=== PATIENT | male | born 1945 | race Caucasian/White ===

== ENCOUNTER 2018-06-13 21:48 | Inpatient (IN) | payer MEDICARE ==
[~2018-06-13] VITALS: Ht 188 cm; Wt 108.8 kg
--- NOTE | ~2018-06-13 | HEMODYNAMI ---
PATIENT:TAMMY CARDONA MEDICAL RECORD: [id number] : 43 LOCATION:[place] [address] ADMISSION DATE: 06/13/18 Generatedon:06/15/201813:24 Patient name: TAMMY CARDONA Patient #: [id number] SSN: : 1945 Date of study: 06/15/2018 Page: Of Hemodynamic Procedure Report Patient Data Patient Demographics Procedure consent was obtained First Name: TAMMY Gender: Male Last Name: BRENDAN : 1945 Patient #: [id number] Age: 73 year(s) Race: Additional ID: [id number] Contact details Address: [address] State: [place] City: [facility] Zip code: [address] Past Medical History Allergies: No known allergies Admission Admission Data Admission Date: 06/13/2018 Admission Time: 23:50 Room #: [facility] Height (in.): 74 BSA: 2.32 (m2) Height (cm.): 187.96 BMI: 29.85 (kg/m2) Weight (lbs.): 232.48 Weight (kg.): 105.45 Procedure Procedure Types Cath Procedure Diagnostic Procedure [facility] w/Coronaries Sedation Charges Moderate Sedation up to 15 minutes PCI Procedure Coronary Stent Coronary Stent Initial x2 Peripheral Cath Diagnostic Procedure Firmware Software Verification Engineer Peripheral Procedures Four Vessel Arteriogram Procedure Description Procedure Date Procedure Date: 06/15/2018 Procedure Start Time: 12:54 Procedure End Time: 13:24 Procedure Staff Name Function Tutu Watson MD Performing Physician Donovan Canada RT Scrub Eve Toure RT Monitor Oziel Magana RN Nurse Procedure Data Cath Procedure Fluoroscopy Diagnostic fluoroscopy Total fluoroscopy Time: 4.9 time: 4.9 min min Diagnostic fluoroscopy Total fluoroscopy dose: dose: 1162 mGy 1162 mGy Contrast Material Contrast Material Type Amount (ml) Isovue 300 142 Entry Location Entry Primary Successful Side Size Upsize Upsize Entry Closure Succes sful Closure Location (Fr) 1 (Fr) 2 (Fr) Remarks Device Remarks Femoral Right 5 Fr 6 Fr Exoseal artery Short Estimated blood loss: 10 ml Diagnostic catheters Device Type Used For End Catheter Placement MULTIPACK Pigtail 5 Fr LV Angiography catheter MULTIPACK JL 4.0 5Fr Left Coronary catheter Angiography MULTIPACK 3DRC 5Fr Right Coronary catheter Angiography MULTIPACK 3DRC 5Fr Vertebral (neck catheter and/or head) arteriography MULTIPACK 3DRC 5Fr Cervical carotid catheter (common) arteriography Procedure Complications No complications Procedure Medications Medication Administration Route Dosage Oxygen etCO2 Nasal cannula 3 l/min Lidocaine 2% added to field 20 Heparin Flush Bag added to field 2 bags (1000units/500ml NS) 0.9% NaCl I.V. 100 ml/hr Heparin Bolus I.V. 4000 units Integrilin (Bolus I.V. 9.5 ml 2mg/ml) Integrilin (Bolus wasted 0.5 ml 2mg/ml) Versed I.V. 1 mg Fentanyl I.V. 50 mcg Versed I.V. 1 mg Fentanyl I.V. 50 mcg Versed I.V. 1 mg Fentanyl I.V. 50 mcg Versed I.V. 1 mg Fentanyl I.V. 50 mcg Plavix P.O. 600 mg Hemodynamics Rest BSA: 2.32 (m2) O2 Consumption: Estimated: 259.81 (ml/min) O2 Consumption indexed : Estimated:111.99 (ml/min/m) Heart Rate: 62 (bpm) Snapshots Pre Cath Intra NCS Post Cath Vital Signs Time Heart Resp SPO2 etCO2 NIBP (mmHg) Rhythm Pain Sedation Rate (ipm) (%) (mmHg) Status Level (bpm) 12:42:56 66 18 96 37.1 119/74(86) A-Fib 0 (11) 10(A) , No pain 12:47:10 67 19 97 22.7 114/60(92) A-Fib 0 (11) 10(A) , No pain 12:52:06 70 15 92 15.9 138/117(135) A-Fib 0 (11) 10(A) , No pain 12:57:29 67 13 91 20.4 111/69(97) A-Fib 0 (11) 10(A) , No pain 13:01:31 67 15 98 1.5 130/90(111) A-Fib 0 (11) 9(A) , No pain 13:05:34 54 15 97 27.2 124/91(114) A-Fib 0 (11) 9(A) , No pain 13:09:46 49 14 95 43.1 124/83(96) A-Fib 0 (11) 9(A) , No pain 13:13:54 62 17 97 26.5 125/71(96) A-Fib 0 (11) 9(A) , No pain 13:18:04 61 15 96 20.4 105/78(100) A-Fib 0 (11) 9(A) , No pain 13:22:14 57 16 97 15.9 119/69(88) A-Fib 0 (11) 10(A) , No pain Medications Time Medication Route Dose Verified Delivered Reason Notes Effectiveness by by 12:44:25 Oxygen etCO2 3 Tutu Buffie used for Nasal l/min Walter Magana RN procedure cannula 12:44:33 Lidocaine 2% added 20ml Tutu Tutu for local to vial Walter Watson MD anesthetic field 12:44:39 Heparin Flush added 2 Tutu Tutu used for Bag to bags Walter Watson MD procedure (1000units/500ml field NS) 12:44:49 0.9% NaCl I.V. 100 Tutu Buffie Per physician ml/hr Walter Magana RN 12:53:19 Versed I.V. 1 mg Tutu Buffie for sedation Walter Magana RN 12:53:25 Fentanyl I.V. 50 Tutu Buffie for sedation mcg Walter Magana RN 12:56:33 Versed I.V. 1 mg Tutu Buffie for sedation Walter Magana RN 12:56:36 Fentanyl I.V. 50 Tutu Buffie for sedation mcg Walter Magana RN 12:59:51 Versed I.V. 1 mg Uttu Buffie for sedation Walter Magana RN 12:59:54 Fentanyl I.V. 50 Tutu Buffie for sedation mcg Walter Magana RN 13:03:58 Versed I.V. 1 mg Tutu Buffie for sedation Walter Magana RN 13:03:59 Fentanyl I.V. 50 Tutu Buffie for sedation mcg Walter Magana RN 13:04:27 Heparin Bolus I.V. 4000 Tutu Buffie for verif ied units Tauth MD Magana RN anticoagulation with dr watson 13:04:47 Integrilin I.V. 9.5 Tutu Ludwig for (Bolus 2mg/ml) ml Walter Magana RN antiplatelet therapy 13:05:03 Integrilin wasted 0.5 Tutu Ludwig to sharp's (Bolus 2mg/ml) ml Walter Magana RN 13:23:06 Plavix P.O. 600 Tutu Ludwig for mg Walter Magana RN antiplatelet therapy Procedure Log Time Note 12:13:10 Diagnostic Cath Status : Elective 12:16:04 Patient Weight : 232.48 lbs 12:16:10 Patient Height : 74 inches 12:16:21 Donovan Canada RT(R) (CV) sent for patient. Start room use. 12:16:22 Time tracking: Regular hours (M-F 7:00 - 5:00) 12:16:26 Plan of Care:Hemodynamics will remain stable., Cardiac rhythm will remain stable., Comfort level will be maintained., Respiratory function will remain adequate., Patient/ family verbilizes understanding of procedure., Procedure tolerated without complication., Recovers from procedure without complications.. 12:41:54 Vital chart was started 12:42:17 Patient received from Med/Surg to CCL 1 Alert and oriented. Tansferred to table in Supine position. 12:42:18 Warm blankets applied, and juan miguel hugger turned on for patient comfort. 12:42:18 Correct patient and procedure confirmed by team. 12:42:19 Signed procedure consent form obtained from patient. 12:42:20 ECG and BP/O2 sat monitors applied to patient. 12:42:21 Full Disclosure recording started 12:42:33 H&P Date Dictated: 06/15/2018 Within 30 days and on chart.. 12:42:35 Pre-procedure instructions explained to patient. 12:42:35 Pre-op teaching completed and patient verbalized understanding. 12:42:41 Rhythm: atrial fibrillation 12:42:47 Family in waiting room. 12:42:49 Patient NPO since Midnight. 12:43:02 Patient allergic to No known allergies 12:43:04 Is the patient allergic to Iodine/contrast media? No. 12:43:08 Is patient on blood thinner?No 12:44:25 Oxygen 3 l/min etCO2 Nasal cannula was administered by Oziel Magana RN; used for procedure; 12:44:33 Lidocaine 2% 20ml vial added to field was administered by Tutu Watson MD; for local anesthetic; 12:44:39 Heparin Flush Bag (1000units/500ml NS) 2 bags added to field was administered by Tutu Watson MD; used for procedure; 12:44:49 0.9% NaCl 100 ml/hr I.V. was administered by Oziel Magana RN; Per physician; 12:45:19 Patient diabetic? No. 12:45:22 Previous problem with sedation/anesthesia? No ? 12:45:24 Snore? Yes 12:45:24 Sleep apnea? Yes 12:45:25 Deviated septum? No 12:45:26 Opens mouth fully? Yes 12:45:27 Sticks out tongue? Yes 12:45:34 Airway obstruction? Yes COPD 12:45:44 Dentures? No ? 12:45:50 Pre procedure: right dorsailis pedis pulse 2+ Normal; easily identifiable; not easily obliterated 12:46:25 Pre procedure: left dorsailis pedis pulse 2+ Normal; easily identifiable; not easily obliterated 12:46:28 Patient pain scale 0/10 ?. 12:46:34 IV patent on arrival in left forearm with 0.9% NaCl at [facility]. 12:46:37 Lab results completed and on chart. 12:46:43 Right groin area was prepped with chlora-prep and draped in sterile fashion 12:46:44 Alarms reviewed by R. N. 12:46:45 Sharps counted by scrub and verified by R.N. 12:46:50 Use device set Femoral Dx 12:46:51 ACIST Syringe (14239) opened to sterile field. 12:46:51 Bag Decanter () opened to sterile field. 12:46:51 Medline Cath Pack ([id number]) opened to sterile field. 12:46:52 DIAGNOSTIC WIRE .035 260cm J wire ([id number]) opened to sterile field. 12:46:53 ACIST Hand Control (71109) opened to sterile field. 12:46:54 ACIST Manifold (19087) opened to sterile field. 12:46:54 DIAGNOSTIC Multipack 5Fr catheter set ([id number]) opened to sterile field. 12:46:55 Tegaderm 4 x 4 (1626W) opened to sterile field. 12:46:56 SHEATH 5FR [place] (GID480) opened to sterile field. 12:47:51 Baseline sample Acquired. 12:49:42 Baseline sample Acquired. 12:50:14 Baseline sample Acquired. 12:50:17 Baseline sample Acquired. 12:52:26 Zero performed for pressure channel P1 12:52:29 Final Timeout: patient, procedure, and site verified with staff and physician. All members of the team are in agreement. 12:52:30 Right groin site verified by team. 12:52:33 Maximum allowable Isovue 300 dose 300ml. Physician notified. (300ml for normal creatinines. For patients with creatinine of 1.7 or higher multiply weight(kg) x 5 divided by creatinine.) 12:52:37 Fire Safety Assessment: A--An alcohol-based skin anteseptic being used preoperatively., C--Open oxygen or nitrous oxide is being used., D--An ESU, laser, or fiber-optic light is being used. 12:52:40 Physical assessment completed. ASA score P 3 - A patient with severe systemic disease as per Tutu Watson MD. 12:52:42 Sedation plan: IV Moderate Sedation Medication:Versed, Fentanyl 12:53:19 Versed 1 mg I.V. was administered by Oziel Magana RN; for sedation; 12:53:22 Zero performed for pressure channel P1 12:53:25 Fentanyl 50 mcg I.V. was administered by Oziel Magana RN; for sedation; 12:54:01 Procedure started. 12:54:04 Local anesthetic to right femoral artery with Lidocaine 2% by Tutu Watson MD.INITIAL ACCESS ONLY 12:54:06 Zero performed for pressure channel P1 12:54:10 Zero performed for pressure channel P1 12:54:41 A 5 Fr sheath was inserted into the Right Femoral artery 12:55:45 A MULTIPACK Pigtail 5 Fr catheter was advanced over the wire and used for LV Angiography. 12:56:09 LV gram done using CABAN 12:56:14 Injector settings: Ml/sec: 10, Volume: 20, 12:56:23 EF : 60 % 12:56:33 Versed 1 mg I.V. was administered by Oziel Magana RN; for sedation; 12:56:36 Fentanyl 50 mcg I.V. was administered by Buffie Magana RN; for sedation; 12:56:36 Catheter removed. 12:56:48 A MULTIPACK JL 4.0 5Fr catheter was advanced over the wire and used for Left Coronary Angiography. 12:57:57 Catheter removed. 12:58:07 A MULTIPACK 3DRC 5Fr catheter was advanced over the wire and used for Right Coronary Angiography. 12:59:05 Catheter removed. 12:59:51 Versed 1 mg I.V. was administered by Oziel Magana RN; for sedation; 12:59:54 Fentanyl 50 mcg I.V. was administered by Oziel Magana RN; for sedation; 13:00:41 Sheath upsized to a 6 Fr Short. 13:03:58 Versed 1 mg I.V. was administered by Oziel Magana RN; for sedation; 13::59 Fentanyl 50 mcg I.V. was administered by Oziel Magana RN; for sedation; 13:04:27 Heparin Bolus 4000 units I.V. was administered by Oziel Magana RN; for anticoagulation; verified with dr watson 13:04:47 Integrilin (Bolus 2mg/ml) 9.5 ml I.V. was administered by Oziel Magana RN; for antiplatelet therapy; 13:04:55 6 Fr XBLAD 4.0 guide catheter was inserted over the wire 13:05:03 Integrilin (Bolus 2mg/ml) 0.5 ml wasted was administered by Oziel Magana RN; to sharp's; 13:05:26 CHOICE PT ES wire advanced. 13:06:28 Place stent Inflation Number: 1 A INTEGRITY RX 3.0 x 15 stent ([id number]) was prepped and advanced across the Prox LAD. The stent was deployed at 21 SHOAIB for 0:08 (min:sec). 13:07:23 Wire redirected to CIRC. 13::57 Inflation number: 2 The stent balloon was then re-inflated across the Dist CX to 5 SHOAIB for 0:05 (min:sec). 13:08:10 Stent catheter was removed intact over wire. 13:09:55 Place stent Inflation Number: 1 A INTEGRITY RX 2.75 x 14 stent ( ) was prepped and advanced across the Dist CX. The stent was deployed at 15 SHOAIB for 0:06 (min:sec). 13:10:33 Stent catheter was removed intact over wire. 13:10:33 Wire removed. 13:10:34 Guide catheter removed. 13:11:11 A MULTIPACK 3DRC 5Fr catheter was advanced over the wire and used for Vertebral (neck and/or head) arteriography. 13:12:52 A MULTIPACK 3DRC 5Fr catheter was advanced over the wire and used for Cervical carotid (common) arteriography. 13:14:10 Catheter removed. 13:14:24 Sheath removed intact; hemostasis achieved with Exoseal to the Right Femoral artery. 13:14:26 Procedure ended.(Physican Out) 13:15:02 Fluoroscopy time 04.90 minutes. 13:15:07 Flurop Dose total: 1162 13:15:07 Fluoroscopy dose: 1162 mGy 13:15:39 Contrast amount:Isovue 300 142ml. 13:15:41 Sharps counted by scrub and verified by R.N. 13:15:42 Insertion/operative site no bleeding no hematoma. 13:15:45 Post-op/insertion site Right Femoral artery dressed using a 4 x 4 and Tegaderm. 13:15:49 Post right femoral artery:stable, clean and dry 13:15:51 Post Procedure Pulses reassessed and unchanged 13:15:57 Post-procedure physical assessment completed. ASA score P 3 - A patient with severe systemic disease as per Tutu Watson MD. 13:16:00 Post procedure rhythm: unchanged. 13:16:10 Estimated blood loss: 10 ml 13:16:11 Post procedure instruction explained to patient.Patient verbalizes understanding. 13:16:12 Patient needs reinforcement of post procedure teaching. 13:16:29 Procedure type changed to Cath procedure, Diagnostic procedure, LHC, LHC w/Coronaries, Sedation Charges, Moderate Sedation up to 15 minutes, PCI procedure, Coronary Stent, Coronary Stent Initial x2, Peripheral Cath Diagnostic Procedure, Firmware Software Verification Engineer Peripheral Procedures, Four Vessel Arteriogram 13:18:07 Procedure Complication : No complications 13:18:08 See physician's report for complete and final results. 13:18:22 EXOSEAL 6Fr (EX600) opened to sterile field. 13:18:40 Use device set TAUTH PCI 13:18:43 SHEATH 6FR [place] (ITB750) opened to sterile field. 13:18:45 INFLATOR Merit BasixCompak (ZZ8991) opened to sterile field. 13:18:47 CHOICE PT Extra Support 182cm wire ([id number]) opened to sterile field. 13:18:52 GUIDE 6FR XBLAD 4.0 catheter ([id number]) opened to sterile field. 13:21:06 Procedure and supply charges have been captured, reviewed, submitted and are correct. 13:23:06 Plavix 600 mg P.O. was administered by Oziel Magana RN; for antiplatelet therapy; 13:23:54 Vital chart was stopped 13:23:56 Report given to PCU. 13:24:01 Patient transfered to PCU with Bed. 13:24:04 Procedure ended. 13:24:04 Full Disclosure recording stopped 13:24:08 End room use (Document Last) Intervention Summary Intervention Notes Time ActionType Lesion and Equipment Action# Pressure Duration Attributes Used 13:06:28 Place stent Prox LAD INTEGRITY RX 1 21 00:09 3.0 x 15 stent ([id number]) 13:07:57 Reinflate Dist CX INTEGRITY RX 2 5 00:05 stent 3.0 x 15 balloon stent ([id number]) 13:09:55 Place stent Dist CX INTEGRITY RX 1 15 00:06 2.75 x 14 stent ([id number]) Device Usage Item Name Manufacture Quantity Catalog Number Hospital Part Current Mini mal Lot# / Charge Number Stock Stock Serial# Code ACIST Acist 1 96188 123064 741098 399914 20 Syringe Medical (18310) Systems Inc Bag Decanter Microtek 1 2001S 717625 55349 034474 5 () Medical Inc. Medline Cath Medline 1 [id number] 871183 69933 140529 5 Pack ([id number]) DIAGNOSTIC St [place] 1 102716 633352 106321 861526 30 WIRE .035 260cm J wire (917196) ACIST Hand Acist 1 70355 543505 524234 150964 5 Control Medical (57502) Systems Inc ACIST Acist 1 86925 324273 984024 864583 5 Manifold Medical (09727) Systems Inc DIAGNOSTIC Cardinal 1 FG2096 182840 22269 211318 30 [facility] [email or web address] 5Fr catheter set (XG6830) Tegaderm 4 x 3M 1 1626W 727767 742829 047595 5 4 (1626W) SHEATH 5FR Terumo 1 HIX632 751054 842998 135910 5 [place] (ARS963) MULTIPACK Cardinal 1 836058 5 Pigtail 5 Fr Health catheter MULTIPACK JL Cardinal 1 559847 5 4.0 5Fr Health catheter MULTIPACK Cardinal 1 357815 5 3DRC 5Fr Health catheter INTEGRITY RX Medtronic 1 [id number] 670857 020645 355475 5 [id number] 3.0 x 15 stent ([id number]) INTEGRITY RX Medtronic 1 [id number] 667236 617248 701911 5 [id number] 2.75 x 14 stent ([id number]) EXOSEAL 6Fr Cardinal 1 EX600 604258 623026 501857 10 (EX600) Health SHEATH 6FR Terumo 1 MZA360 769922 555490 645090 40 [place] (OXL685) INFLATOR Merit 1 VJ0255 638445 165886 226594 15 [facility] Medical BasixCompak (BN0755) CHOICE PT [place] 1 [id number] 622061 636814 075096 5 Extra Scientific Support 182cm wire ([id number]) GUIDE 6FR Cardinal 1 [id number] 708979 142905 130409 3 XBLAD 4.0 Health catheter ([id number]) Signature Audit [place] Stage Time Signature Unsigned Intra-Procedure 06/15/2018 Eve 1:24:33 PM Counts RT(R) Signatures Monitor : Eve Signature : Counts RT Date : Time : [address] [address]
[2018-06-13 22:00] VITALS: BP 116/81
[2018-06-13 22:19] LABS: BASOPHILS 0.3 % (0-2); EOSINOPHILS 0.3 % (0-7); HEMATOCRIT 42.8 % (42.0-54.0); HEMOGLOBIN 14.4 g/dL (13.5-17.5); IMMATURE GRANULOCYTES 0.3 % (0-5); LYMPHOCYTES 21.2 % (15-50); MCH 34.3 pg (26.0-34.0); MCHC 33.6 g/dL (31.0-37.0); MCV 101.9 fL (80.0-100.0); MEAN PLATELET VOLUME 10.2 fL (7.4-10.4); MONOCYTES 11.5 % (2-11); NEUTROPHILS 66.4 % (40-80); PLATELET COUNT 254 10x3/uL (130-400); RDW 14.3 % (11.5-14.5); WBC 6.2 10x3/uL (4.8-10.8)
[2018-06-13] MEDS ORDERED: PROTONIX40 MG PO (22:22)
[2018-06-13] MEDS ORDERED: CHRONULAC30 ML PO (22:22)
[2018-06-13] MEDS ORDERED: STERAPRED DS 1210 MG PO (22:22)
[2018-06-13] MEDS ORDERED: REMERON15 MG PO (22:22)
[2018-06-13] MEDS ORDERED: LYRICA100 MG PO (22:23)
[2018-06-13] MEDS ORDERED: IPRAT-ALBUT 0.5-3 ML UPD (22:23)
[2018-06-13] MEDS ORDERED: SINGULAIR10 MG PO (22:23)
[2018-06-13] MEDS ORDERED: TRAMADOL HCL E100 M1 PO (22:24)
[2018-06-13] MEDS ORDERED: CARDIZEM120 MG PO (22:24)
[2018-06-13] MEDS ORDERED: CYMBALTA60 MG PO (22:24)
[2018-06-13] MEDS ORDERED: BROVANA15 MCG/2 M INH (22:25)
[2018-06-13] MEDS ORDERED: BETAPACE 80 MG80 MG PO (22:25)
[2018-06-13] MEDS ORDERED: PULMICORT0.5 MG/21 INH (22:25)
[2018-06-13] MEDS ORDERED: ZANAFLEX4 MG PO (22:26)
[2018-06-13] MEDS ORDERED: XANAX1 MG PO (22:26)
[2018-06-13 22:27] LABS: INR 1.21 (0.85-1.17); PROTIME 14.8 SECONDS (11.6-15.0)
[2018-06-13] MEDS ORDERED: MORPHINE IMMEDI15 MG PO (22:27)
[2018-06-13 22:28] LABS: APTT 32.5 SECONDS (22.8-39.4)
[2018-06-13 22:31] LABS: ALBUMIN 3.3 g/dL (3.4-5.0); ALKALINE PHOSPHATASE 108 U/L (46-116); ALT (SGPT) 23 U/L (10-68); CALC OSMOLALITY 280 mosm/kg (275-300); CALCIUM 8.3 mg/dL (8.5-10.1); CARBON DIOXIDE 33.3 mmol/L (21.0-32.0); CHLORIDE - SERUM 96 mmol/L (98-107); CREATININE - SERUM 1.4 mg/dL (0.6-1.3); GLUCOSE 133 mg/dL (74-106); SODIUM 138 mmol/L (136-145); UREA NITROGEN 20 mg/dL (7-18); eGFR NON AFRICAN AMERICAN 53 mL/min (90-120)
[2018-06-13 22:43] LABS: CKMB 2.7 U/L (0.0-3.6); CREATINE KINASE 189 UL (21-232); PRO BNP 1048 pg/mL (0-125)
[2018-06-13 22:44] LABS: TROPONIN-I 0.016 ng/mL (0.000-0.060)
[2018-06-13 23:00] VITALS: BP 131/69
--- NOTE | 2018-06-13 23:45 | NUR ---
EDP TONIO REPORTS CT C SPINE IS CLEAR, C COLLAR REMOVED PER EDP INSTRUCTION.
--- NOTE | 2018-06-13 23:50 | NUR ---
PT DAUGHTER, ALEXIA,
--- NOTE | 2018-06-14 00:19 | NUR ---
PT ARRIVED ON UNIT VIA STRETCHER ESCORTED BY ER STAFF. PT SLEEPING AND DID NOT AWAKE WHEN TRANSFERRED TO BED. TELEMETRY PLACED PER ORDER. O2 IN USE VIA NC AT 2L. GRIPPER SOCKS PUT ON AND BED ALARM ACTIVATED FOR FALL PRECAUTIONS. SIDE RAILS UP X2 FOR SAFETY.
[2018-06-14 00:36] VITALS: BP 109/73; BMI 29.8
[2018-06-14 04:00] VITALS: BP 106/71
--- NOTE | 2018-06-14 04:21 | NUR ---
DAUGHTER, ALEXIA, CALLED FOR UPDATE ON HER FATHER...NO PASSWORD HAS BEEN SET UP BUT SHE VERIFIED HER NAME AND PHONE NUMBER THAT IS IN HIS RECORD.
[2018-06-14 05:10] LABS: BASOPHILS 0.2 % (0-2); EOSINOPHILS 1.5 % (0-7); HEMATOCRIT 42.9 % (42.0-54.0); HEMOGLOBIN 14.4 g/dL (13.5-17.5); IMMATURE GRANULOCYTES 0.2 % (0-5); MCH 34.4 pg (26.0-34.0); MCHC 33.6 g/dL (31.0-37.0); MCV 102.6 fL (80.0-100.0); MONOCYTES 9.7 % (2-11); NEUTROPHILS 56.4 % (40-80); PLATELET COUNT 231 10x3/uL (130-400); RBC 4.18 10x6/uL (4.20-6.10); RDW 14.3 % (11.5-14.5)
[2018-06-14 05:27] LABS: ANION GAP 12.5 mmol/L (8-16); CALCIUM 8.3 mg/dL (8.5-10.1); CARBON DIOXIDE 33.4 mmol/L (21.0-32.0); CREATININE - SERUM 1.3 mg/dL (0.6-1.3)
[2018-06-14 05:30] LABS: POTASSIUM - SERUM 2.9 mmol/L (3.5-5.1)
[2018-06-14 05:34] LABS: WBC 4.1 10x3/uL (4.8-10.8)
[2018-06-14 08:30] VITALS: BP 125/75
--- NOTE | 2018-06-14 10:29 | NUR ---
LETHARGIC BUT ORIENTED TO SELF AND PLACE IVF INFUSING AT RESRIBED RATE WOTH POTASSIUM RIDERS INFUSING DUE TO k 2.9 PER PROTOCOL. DENIES ANY PAIN OR DISCOMFORT AT THIS TIME. ENCOURAGED TO USE CALL LIGHT FOR ASSIST.
[2018-06-14 12:43] VITALS: BP 127/61
[2018-06-14 12:56] LABS: MAGNESIUM - SERUM 1.8 mg/dL (1.8-2.4); PHOSPHOROUS 3.4 mg/dL (2.5-4.9)
--- NOTE | 2018-06-14 13:00 | NUR ---
PT COUGHING WITH TEMETRY RATE OF 131 OF CONTROLLED A-FIB. DENIES ANY CHEST PAIN OR DISCOMFORT OR CHANGE IN MENTAL STATUS
[2018-06-14 16:36] VITALS: BP 112/72
--- NOTE | 2018-06-14 19:55 | NUR ---
RECEIVED REPORT, ASSUMED CARE, ALERT, EMILY ALARM ON, REINSTATED THE IMPORTANCE OF USING THE CALL LIGHT BEFORE GETTING OUT OF BED, DENIES NEEDS, CALL LIGHT IN REACH, BED LOWEST POSITION, WILL CONTINUE TO MONITOR
[2018-06-14 20:00] VITALS: BP 106/65
[2018-06-15] VITALS (8 sets, daily range): BP systolic 109–129; BP diastolic 51–88
--- NOTE | 2018-06-15 01:44 | NUR ---
I have reviewed this patient and I concur with the Shift Assessment completed by the Licensed Practical Nurse today this shift.
[2018-06-15 04:53] LABS: BASOPHILS 0.2 % (0-2); EOSINOPHILS 4.3 % (0-7); HEMOGLOBIN 13.4 g/dL (13.5-17.5); IMMATURE GRANULOCYTES 0.6 % (0-5); LYMPHOCYTES 30.8 % (15-50); MCHC 31.9 g/dL (31.0-37.0); MEAN PLATELET VOLUME 10.4 fL (7.4-10.4); MONOCYTES 8.9 % (2-11); NEUTROPHILS 55.2 % (40-80); PLATELET COUNT 240 10x3/uL (130-400); RBC 3.94 10x6/uL (4.20-6.10); RDW 14.8 % (11.5-14.5)
[2018-06-15 04:56] LABS: MCV 106.6 fL (80.0-100.0); WBC 5.2 10x3/uL (4.8-10.8)
[2018-06-15 05:13] LABS: ALBUMIN 2.8 g/dL (3.4-5.0); ANION GAP 7.6 mmol/L (8-16); BILIRUBIN - TOTAL 0.36 mg/dL (0.2-1.3); CALCIUM 8.2 mg/dL (8.5-10.1); CARBON DIOXIDE 38.6 mmol/L (21.0-32.0); CREATININE - SERUM 1.1 mg/dL (0.6-1.3); PROTEIN - SERUM 6.1 g/dL (6.4-8.2)
[2018-06-15 05:14] LABS: POTASSIUM - SERUM 4.2 mmol/L (3.5-5.1)
--- NOTE | 2018-06-15 12:08 | MORECARE ---
CASE MANAGEMENT DISCHARGE SUMMARY PATIENT: TAMMY CARDONA UNIT: [id number] ADM DATE: 06/13/18 AGE: 73 : 44 SEX: M ROOM/BED: D.2227 AUTHOR: RANGEL ESCUDERO PHYSICIAN: REFERRING PHYSICIAN: JOHN MESSER MD DATE OF SERVICE: 06/15/18 Discharge Plan Patient Name: TAMMY CARDONA [facility] [facility] 1945 Planned Disposition: Home Anticipated Discharge Date: Discharge Date: Expected LOS: Initial Reviewer: [email or web address] Initial Review Date: 06/15/2018 Generated: 06/15/18 1:08 pm Patient Name: TAMMY CARDONA Page 62640 at 1208 All edits/amendments must be made on the electronic document DICTATION DATE: 06/15/18 1208 SWIMMING POOL CLEANER: JEB 06/15/18 1208 RPT#: [id number] DC DATE: STATUS: ADM IN [facility] [address] [place] [address] END OF REPORT
--- NOTE | 2018-06-15 12:22 | MORECARE ---
CASE MANAGEMENT DISCHARGE SUMMARY PATIENT: TAMMY CARDONA UNIT: [id number] ADM DATE: 06/13/18 AGE: 73 : 43 SEX: M ROOM/BED: D.2227 AUTHOR: RANGEL ESCUDERO PHYSICIAN: REFERRING PHYSICIAN: JOHN MESSER MD DATE OF SERVICE: 06/15/18 Discharge Plan Patient Name: TAMMY CARDONA Facility: [facility]:[place] : 1945 Planned Disposition: Home Anticipated Discharge Date: Discharge Date: Expected LOS: Initial Reviewer: [email or web address] Initial Review Date: 06/15/2018 Generated: 06/15/18 1:22 pm DCPIA - Discharge Planning Initial Assessment Updated by [email or web address]: April Houser on 06/15/18 12:16 pm * Is the patient Alert and Oriented? Yes * How many steps to enter\exit or inside your home? NONE * PCP [facility] [place] [place] JOSE J HUBBARD * [facility] * Preadmission Environment Home with Family * ADLs Partial Dependent * Partial ADLs (Assistance needed) Bathing Dressing * Equipment Nebulizer * Other Equipment CT IS SETTING UP OXYGEN TODAY AT PT'S HOME. HAS CANE AND NEBULIZER CT IS ALSO ARRANGING FOR WHEELCHAIR * List name and contact numbers for known caregivers / representatives who currently or will assist patient after discharge: ALEXIA GUILLORY- GIAN- [phone] * Verbal permission to speak to the caregivers and representatives has been obtained from the patient. Yes * Community resources currently utilized None * Please name any agencies selected above. N/A * Additional services required to return to the preadmission environment? Yes * Can the patient safely return to the preadmission environment? Yes * Has this patient been hospitalized within the prior 30 days at any hospital? No Last DP export: 06/15/18 11:08 a Patient Name: TAMMY CARDONA Page 50048 at 1222 All edits/amendments must be made on the electronic document DICTATION DATE: 06/15/18 1221 CIVIL RIGHTS REPRESENTATIVE: JEB 06/15/18 1221 RPT#: [id number] DC DATE: STATUS: ADM IN [facility] [address] [facility] [place] [address] END OF REPORT
--- NOTE | 2018-06-15 12:30 | MORECARE ---
CASE MANAGEMENT DISCHARGE SUMMARY PATIENT: TAMMY CARDONA UNIT: [id number] ADM DATE: 06/13/18 AGE: 73 : 44 SEX: M ROOM/BED: D.2227 AUTHOR: KENADOC PHYSICIAN: REFERRING PHYSICIAN: JOHN MESSER MD DATE OF SERVICE: 06/15/18 Discharge Plan Patient Name: TAMMY CARDONA Facility: [facility]:[place] : 1945 Planned Disposition: Home Anticipated Discharge Date: Discharge Date: Expected LOS: Initial Reviewer: [email or web address] Initial Review Date: 06/15/2018 Generated: 06/15/18 1:30 pm Comments DCP- Discharge Planning Updated by [email or web address]: April Houser on 06/15/18 11:[address] Patient Name: TAMMY CARDONA Admission Status: ER Accout number: [id number] Admission Date: 06-13-2018 : 1945 Admission Diagnosis: Attending: JOHN MESSER Current LOS: 2 Anticipated DC Date: Planned Disposition: Home Primary Insurance: [employer] ADV Discharge Planning Comments: CM MET THE PATIENT AT THE BEDSIDE. CM EXPLAINED MY ROLE. HE SAID HE WOULD ANSW ER THE QUESTIONS THAT HE COULD. HIS DAUGHTER HELPS HIM WITH HIS CARE. SHE IS HOME WAITING FOR [place] TO DELIVER HIS OXYGEN SUPPLIES TODAY. SHE WILL BE IN TO VISIT TOMORROW. [facility]. MARY HUBBARD APN, FOLLOWS HIM AT THE NE. HIS DAUGHTER ASSIST HIM AT HOME. HE HAS A CANE AND NEBULIZER. [place] IS DELIVERING O2 DME TODAY.HE IS ALSO GETTING A WALKER DELIVERED FROM THE [place]. HE IS ALERT AND ORIENTED. HE IS WEARING NASAL O2 AT 2/L/MIN. HIS PLAN AT THIS TIME IS TO RETURN TO HOME. HE GAVE PERMISSION FOR CM TO SPEAK WITH HIS DAUGHTER REGARDING DC PLANS AND NEEDS. TC TO [place] CLINIC. SPOKE W/ [facility]. CONFIRMED PATIENT'S PRIMARY. WILL FAX H/P TO [place] [phone]. CM TO FOLLOW. Cardiovascular Radiologic Technologist: April Houser DCPIA - Discharge Planning Initial Assessment Updated by [id number]: April Houser on 06/15/18 12:16 pm * Is the patient Alert and Oriented? Yes * How many steps to enter\exit or inside your home? NONE * [facility] [place] * [facility] * Preadmission Environment Home with Family * ADLs Partial Dependent * Partial ADLs (Assistance needed) Bathing Dressing * Equipment Nebulizer * Other Equipment NE IS SETTING UP OXYGEN TODAY AT PT'S HOME. HAS CANE AND NEBULIZER VA IS ALSO ARRANGING FOR WHEELCHAIR * List name and contact numbers for known caregivers / representatives who currently or will assist patient after discharge: ALEXIA GUILLORY- GIAN- [phone] * Verbal permission to speak to the caregivers and representatives has been obtained from the patient. Yes * Community resources currently utilized None * Please name any agencies selected above. N/A * Additional services required to return to the preadmission environment? Yes * Can the patient safely return to the preadmission environment? Yes * Has this patient been hospitalized within the prior 30 days at any hospital? No Last DP export: 06/15/18 11:22 a Patient Name: TAMMY CARDONA Page [id number] at 1230 All edits/amendments must be made on the electronic document DICTATION DATE: 06/15/18 123 UTILITY BILL COLLECTION CLERK: JEB 06/15/18 1230 RPT#: [id number] DC DATE: STATUS: ADM IN [facility] [address] [facility] [place] [address] END OF REPORT
--- NOTE | 2018-06-15 12:55 | NUR ---
I have reviewed this patient and I concur with the Shift Assessment completed by the Licensed Practical Nurse today this shift.
--- NOTE | 2018-06-15 13:52 | NUR ---
BACK FROM [facility]. RIGHT GROIN STABLE WITHOUT BLEEDING OR HEMATOMA NOTED. WILL MONITOR.
--- NOTE | 2018-06-15 17:16 | NUR ---
OT NOTE: PT COMPLETED BED MOB WITH MIN /SBA . PT COMPLETED EOB SITTING WITH CGA. PT COMPLETED BUE AROM. THANK YOU, DARIEL KHAN
--- NOTE | 2018-06-15 17:45 | NUR ---
DR. STONE NOTIFIED OF 0S SATS DROPPING, HEAVY COUGHING AND VOMITING. DUMONT INSERTED, UP GIVEN BY RT. LASIX 80MG GIVEN.. DR CORDOVA CONSULTED. WILL MONITOR.
--- NOTE | 2018-06-15 18:41 | NUR ---
TRANSFERED TO ICU PER DR. CORDOVA STAT.
--- NOTE | 2018-06-15 18:59 | NUR ---
COUGHING UP THICK YELLOW SWPUTUM. VOMITING NOTED FROM COUGHING SO HARD. ZOFRAN 4 MG GIVEN IVP. SUCTION SET UP.. RT NOTIFIED TO CHECK 02 SATS.
--- NOTE | 2018-06-15 19:00 | NUR ---
PT PULLED UP IN BED AND HOB ELEVATED. O2 NC AT 5 L. O2 SAT 98%. SHALLOW RESPIRATIONS. BREATH SOUNDS DIMINISHED WITH EXPIRATORY WHEEZES. PUPILS UNEQUAL BUT BRISK REACTIVE. DUMONT TO GRAVITY WITH LIGHT YELLOW URINE DRAINING. HE RECIEVED LASIX IV PRIOR TO ARRIVAL TO ICU. CONTROLLED A-FIB PER CM.
--- NOTE | 2018-06-15 21:30 | NUR ---
ABG IMPROVED. PT IS MORE ALERT AND FOLLOWS COMMANDS. TOLERATING BIPAP.
[2018-06-16] VITALS (21 sets, daily range): BP systolic 95–148; BP diastolic 62–93
--- NOTE | 2018-06-16 04:00 | NUR ---
PT IS AWAKE AND ALERT. ORIENTED X 4. VSS.
[2018-06-16 04:39] LABS: BASOPHILS 0 % (0-2); EOSINOPHILS 0 % (0-7); HEMATOCRIT 44.3 % (42.0-54.0); HEMOGLOBIN 14.2 g/dL (13.5-17.5); IMMATURE GRANULOCYTES 0.4 % (0-5); LYMPHOCYTES 10.9 % (15-50); MCH 34.4 pg (26.0-34.0); MCHC 32.1 g/dL (31.0-37.0); MCV 107.3 fL (80.0-100.0); MEAN PLATELET VOLUME 10.7 fL (7.4-10.4); MONOCYTES 1.5 % (2-11); NEUTROPHILS 87.2 % (40-80); PLATELET COUNT 266 10x3/uL (130-400); RBC 4.13 10x6/uL (4.20-6.10); RDW 14.5 % (11.5-14.5); WBC 5.5 10x3/uL (4.8-10.8)
[2018-06-16 05:03] LABS: ALBUMIN 3.2 g/dL (3.4-5.0); ANION GAP 5.2 mmol/L (8-16); BILIRUBIN - TOTAL 0.32 mg/dL (0.2-1.3); CALCIUM 8.1 mg/dL (8.5-10.1); CREATININE - SERUM 1.2 mg/dL (0.6-1.3); MAGNESIUM - SERUM 1.8 mg/dL (1.8-2.4); POTASSIUM - SERUM 4.4 mmol/L (3.5-5.1); PROTEIN - SERUM 6.9 g/dL (6.4-8.2)
[2018-06-16 05:09] LABS: CARBON DIOXIDE 42.2 mmol/L (21.0-32.0)
--- NOTE | 2018-06-16 05:45 | NUR ---
BIPAP OFF AND ON 3L NC. REMAINS ORIENTED. DENIES NEEDS
--- NOTE | 2018-06-16 07:00 | NUR ---
SHIFT ASSESSMENT COMPLETED. PT CARE ASSUMED, MONITORS ON AND WORKING. VITALS STABLE, PT AWAKE AND ALERT, SITTING UP IN BED, NO SIGNS/SYMPTOMS OF PAIN OR DISCOMFORT NOTED AT THIS TIME. CALL LIGHT WITHIN REACH, WILL CONTINUE TO OBSERVE.
--- NOTE | 2018-06-16 09:00 | NUR ---
PT SITTING UP IN BED EATING BREAKFAST, FAMILY AT BEDSIDE, UPDATE PROVIDED, MONITORS ON AND WORKING, VITALS STABLE, PT AWAKE AND ALERT, NO SIGNS/SYMPTOMS OF PAIN OR DISCOMFORT NOTED, CALL LIGHT WITHIN REACH, WILL CONTINUE TO OBSERVE
--- NOTE | 2018-06-16 11:00 | NUR ---
NO CHANGES, SEE FLOW SHEET FOR FURTHER DETAILS. MONITORS ON AND WORKING, VITALS STABLE. CALL LIGHT WITHIN REACH, WILL CONTINUE TO OBSERVE.
--- NOTE | 2018-06-16 13:00 | NUR ---
PT SITTING UP IN BED EATING LUNCH, PT AWAKE AND ALERT, MONITORS ON AND WORKING. VITALS STABLE. NO SIGNS/SYMPTOMS OF PAIN OR DISCOMFORT NOTED AT THIS TIME, WILL CONTINUE TO OBSERVE.
--- NOTE | 2018-06-16 15:00 | NUR ---
NO CHANGES, MONITORS ON AND WORKING, VITALS STABLE, CALL LIGHT WITHIN REACH, SEE FLOW SHEET FOR FURTHER DETAILS. WILL CONTINUE TO OBSERVE.
--- NOTE | 2018-06-16 17:00 | NUR ---
PT SITTING UP IN BED, ON THE TELEPHONE, PT AWAKE AND ALERT, VITALS STABLE, MONITORS ON AND WORKING, CALL LIGHT WITHIN REACH, WILL CONTINUE TO OBSERVE.
--- NOTE | 2018-06-16 19:15 | NUR ---
REC'D TO CARE, ADVERTISING REPRESENTATIVE PER FLOWSHEET. PT AWAKE AND ORIENTED, VSS. CM - CAF. SKIN ASSESSMENT PER FLOWSHEET. L PIV PATENT - SEE FLOWSHEET. PT DENIES NEEDS. C/L IN REACH.
--- NOTE | 2018-06-16 21:30 | NUR ---
PT BACK ON BIPAP. VSS. RESTING WITH EYES CLOSED, VSS.
--- NOTE | 2018-06-16 23:30 | NUR ---
REASSESSMENT PER FLOWSHEET, NO ACUTE CHANGES. RT AT BS FOR RESP TX. VSS. FRESH WATER PER REQUEST. C/L IN REACH.
[2018-06-17] VITALS (15 sets, daily range): BP systolic 100–132; BP diastolic 22–97
--- NOTE | 2018-06-17 01:15 | NUR ---
RESTING WITH EYES CLOSED, VSS.. ALARMS ON.
--- NOTE | 2018-06-17 03:30 | NUR ---
REASSESSMENT PER FLOWSHEET, NO ACUTE CHANGES. VSS.
--- NOTE | 2018-06-17 04:35 | NUR ---
PT SITTING AT BS, GIVEN COFFEE PER REQUEST. C/L IN REACH.
[2018-06-17 04:37] LABS: BASOPHILS 0.1 % (0-2); EOSINOPHILS 0 % (0-7); HEMATOCRIT 38.4 % (42.0-54.0); HEMOGLOBIN 12.4 g/dL (13.5-17.5); IMMATURE GRANULOCYTES 0.2 % (0-5); LYMPHOCYTES 5.9 % (15-50); MCH 33.9 pg (26.0-34.0); MCHC 32.3 g/dL (31.0-37.0); MEAN PLATELET VOLUME 10.7 fL (7.4-10.4); MONOCYTES 1.6 % (2-11); NEUTROPHILS 92.2 % (40-80); PLATELET COUNT 244 10x3/uL (130-400); RBC 3.66 10x6/uL (4.20-6.10); RDW 14.4 % (11.5-14.5)
[2018-06-17 04:45] LABS: MCV 104.9 fL (80.0-100.0)
[2018-06-17 05:16] LABS: ALBUMIN 2.8 g/dL (3.4-5.0); ANION GAP 5.4 mmol/L (8-16); BILIRUBIN - TOTAL 0.31 mg/dL (0.2-1.3); CALCIUM 7.9 mg/dL (8.5-10.1); CARBON DIOXIDE 39.9 mmol/L (21.0-32.0); CREATININE - SERUM 1.1 mg/dL (0.6-1.3); MAGNESIUM - SERUM 1.8 mg/dL (1.8-2.4); POTASSIUM - SERUM 4.3 mmol/L (3.5-5.1)
[2018-06-17 05:24] LABS: PHOSPHOROUS 1.9 mg/dL (2.5-4.9)
--- NOTE | 2018-06-17 06:00 | NUR ---
DUMONT-CARE DONE. UP UP IN CHAIR WITHOUT ASSIST. LINENS CHANGED. ALARMS ON AND C/L IN REACH.
--- NOTE | 2018-06-17 07:00 | NUR ---
SHIFT ASSESSMENT COMPLETED. PT CARE ASSUMED. MONITORS ON AND WORKING, PT SITTING UP IN CHAIR BESIDE BED, PT AWAKE AND ALERT, NO SIGNS/SYMPTOMS OF PAIN OR DISCOMFORT NOTED AT THIS TIME. CALL LIGHT WITHIN REACH, SEE FLOW SHEET FOR FURTHER DETAILS. WILL CONTINUE TO OBSERVE.
--- NOTE | 2018-06-17 09:00 | NUR ---
PT SITTING UP IN CHAIR AT BEDSIDE, PT AWAKE AND ALERT, NO SIGNS/SYMPTOMS OF PAIN OR DISCOMFORT NOTED AT THIS TIME. CALL LIGHT WITHIN REACH, WILL CONTINUE TO OBSERVE.
--- NOTE | 2018-06-17 09:22 | NUR ---
NUTRITION MONITORING AND EVAL. PT UP IN CHAIR WATCHING TV. REPORTS EATING 100% BREAKFAST. REMAINS AT LOW NUTRITIONAL RISK. RD FOLLOWING
--- NOTE | 2018-06-17 11:00 | NUR ---
NO CHANGES, SEE FLOW SHEET FOR FURTHER DETAILS, MONITORS ON AND WORKING, VITALS STABLE. CALL LIGHT WITHIN REACH, WILL CONTINUE TO OBSERVE.
--- NOTE | 2018-06-17 13:00 | NUR ---
FAMILY AT BEDSIDE, UPDATE PROVIDED. MONITORS ON AND WORKING, VITALS STABLE, PT AWAKE AND ALERT, NO SIGNS/SYMPTOMS OF PAIN OR DISCOMFORT NOTED AT THIS TIME, WILL CONTINUE TO OBSERVE.
--- NOTE | 2018-06-17 15:00 | NUR ---
TRANSFERS ORDERS REC'D TO TRANSFER PT TO FLOOR WHEN ROOM BECOMES AVAILABLE. PT SITTING UP IN CHAIR, MONITORS ON AND WORKING, VITALS STABLE. CALL LIGHT WITHIN REACH. WILL CONTINUE TO OBSERVE.
--- NOTE | 2018-06-17 16:05 | NUR ---
PT A TRANSFER FROM ICU. PT IS SITTING UP IN BED RESTING QUIETLY. VSS. PT NEEDING TELEMETRY MONITER I CALLED AND ORDERED ONE FROM [facility] AND WILL APPLY WHEN I GET IT. PT DENIES ANY CURRENT PAIN OR NEEDS AT THIS TIME. CL IN REACH, WILL CTM.
--- NOTE | 2018-06-17 19:20 | NUR ---
RESUMING CARE .PT LAYING IN BED A&O BREATH SOUNDS EVEN , 02 ON AT 2L , PT HAS LFT FA IV SL , NO C/O PAIN OR DISRESS AT THIS TIME CL IN REACH WILL CONT TO MONITOR
[2018-06-18] VITALS: BP 111/67
[2018-06-18 04:00] VITALS: BP 126/87
--- NOTE | 2018-06-18 04:17 | NUR ---
I have reviewed this patient and I concur with the Shift Assessment completed by the Licensed Practical Nurse today this shift.
[2018-06-18 05:49] LABS: BASOPHILS 0.1 % (0-2); EOSINOPHILS 0 % (0-7); HEMATOCRIT 40.9 % (42.0-54.0); HEMOGLOBIN 13.2 g/dL (13.5-17.5); IMMATURE GRANULOCYTES 0.3 % (0-5); LYMPHOCYTES 4.7 % (15-50); MCHC 32.3 g/dL (31.0-37.0); MCV 105.4 fL (80.0-100.0); MEAN PLATELET VOLUME 10.8 fL (7.4-10.4); MONOCYTES 2.6 % (2-11); NEUTROPHILS 92.3 % (40-80); PLATELET COUNT 280 10x3/uL (130-400); RBC 3.88 10x6/uL (4.20-6.10); RDW 14.6 % (11.5-14.5); WBC 16.7 10x3/uL (4.8-10.8)
[2018-06-18 06:12] LABS: ALBUMIN 3.1 g/dL (3.4-5.0); ANION GAP 6.5 mmol/L (8-16); BILIRUBIN - TOTAL 0.37 mg/dL (0.2-1.3); CALCIUM 8.3 mg/dL (8.5-10.1); CARBON DIOXIDE 38.6 mmol/L (21.0-32.0); CREATININE - SERUM 1.1 mg/dL (0.6-1.3); POTASSIUM - SERUM 4.1 mmol/L (3.5-5.1); PROTEIN - SERUM 6.5 g/dL (6.4-8.2)
--- NOTE | 2018-06-18 07:45 | NUR ---
AM ROUNDS COMPLETED. INTRODUCED MYSELF TO PT PRIMARY RN FOR TODAYS SHIFT. SHIFT ASSESSMENT COMPLETED. PT RESTING QUIETLY IN BED WAITING ON BREAKFAST. PT STATES HE IS FEELING PRETTY GOOD OVERALL AND HAD A GOOD NIGHT. PT DENIES ANY CURRENT PAIN OR NEEDS AT THIS TIME. CL IN REACH, BED IN LOWEST, SIDE RAILS X2. WILL CTM.
[2018-06-18 07:48] VITALS: BP 139/92
--- NOTE | 2018-06-18 09:59 | NUR ---
CALLED PHARMACY FOR A SECOND TIME I STILL DO NOT HAVE MY ANBX TO HANG FOR PT THAT WAS DUE AN HR AGO.
[2018-06-18 12:00] VITALS: BP 118/73
--- NOTE | 2018-06-18 13:25 | NUR ---
PTS R.FA PIV WAS LEAKING AND SOMEHOW CAME OUT. D/C WITH CATHETER TIP FULLY INTACT. RESTARTED NEW PIV TO L.FA X1 STICK. ANBX CURRENTLY INFUSING. PT SITTING UP IN BED RESTING QUIETLY DENIES ANY CURRENT PAIN OR NEEDS AT THIS TIME. CL IN REACH, BED IN LOWEST, SIDE RAILS X2. WILL CTM.
[2018-06-18 13:29] VITALS: Ht 188 cm; Wt 108.8 kg
--- NOTE | 2018-06-18 18:44 | NUR ---
PT SITTING UP IN BED WATCHING TV. PT STATES HE IS FEELING BETTER OVERALL AND HAD A GREAT DAY. CL IN REACH, BED IN LOWEST, SIDE RAILS X2. BEDSIDE SHIFT REPORTING COMPLETED. NO FURTHER NEEDS.
--- NOTE | 2018-06-18 20:27 | NUR ---
AWAKE,ALERT.NO COMPLIANTS VOICED. 02 @ 2.5L PER NC. NO DISTRESS NOTED. RESP UNLABORED. IV INFUSING TO LFA WITHOUT REDNESS OR EDEMA NOTED. CL IN REACH
[2018-06-18 21:54] VITALS: BP 138/92
[2018-06-19 00:20] VITALS: BP 142/87
--- NOTE | 2018-06-19 02:13 | NUR ---
I have reviewed this patient and I concur with the Shift Assessment completed by the Licensed Practical Nurse today this shift.
[2018-06-19 05:05] VITALS: BP 142/87; BP 154/97
[2018-06-19 07:05] LABS: ALBUMIN 2.9 g/dL (3.4-5.0); ANION GAP 6.6 mmol/L (8-16); BASOPHILS 0 % (0-2); BILIRUBIN - TOTAL 0.51 mg/dL (0.2-1.3); CALCIUM 8.2 mg/dL (8.5-10.1); CREATININE - SERUM 1.1 mg/dL (0.6-1.3); EOSINOPHILS 0 % (0-7); HEMATOCRIT 40.1 % (42.0-54.0); HEMOGLOBIN 12.7 g/dL (13.5-17.5); IMMATURE GRANULOCYTES 0.6 % (0-5); LYMPHOCYTES 5.6 % (15-50); MCH 33.7 pg (26.0-34.0); MCHC 31.7 g/dL (31.0-37.0); MCV 106.4 fL (80.0-100.0); MEAN PLATELET VOLUME 11.1 fL (7.4-10.4); MONOCYTES 4.1 % (2-11); NEUTROPHILS 89.7 % (40-80); PLATELET COUNT 247 10x3/uL (130-400); PROTEIN - SERUM 6.1 g/dL (6.4-8.2); RBC 3.77 10x6/uL (4.20-6.10); RDW 14.7 % (11.5-14.5); WBC 13.1 10x3/uL (4.8-10.8)
[2018-06-19 07:10] LABS: POTASSIUM - SERUM 4.6 mmol/L (3.5-5.1)
[2018-06-19] MEDS ORDERED: VIBRAMYCIN 100100 MG PO (07:35)
[2018-06-19] MEDS ORDERED: OMNICEF300 MG PO (07:35)
[2018-06-19] MEDS ORDERED: PLAVIX75 MG PO (07:35)
[2018-06-19] MEDS ORDERED: PREDNISONE20 MG PO (07:37)
--- NOTE | 2018-06-19 10:34 | MORECARE ---
CASE MANAGEMENT DISCHARGE SUMMARY PATIENT: TAMMY CARDONA UNIT: [id number] ADM DATE: 06/13/18 AGE: 73 : 44 SEX: M ROOM/BED: D.1202 AUTHOR: KENADOC PHYSICIAN: REFERRING PHYSICIAN: JOHN MESSER MD DATE OF SERVICE: 06/19/18 Discharge Plan Patient Name: TAMMY CARDONA Facility: [facility]:[place] : 1945 Planned Disposition: Home Anticipated Discharge Date: 06/19/18 Discharge Date: Expected LOS: 6 Initial Reviewer: [id number] Initial Review Date: 06/15/2018 Generated: 06/19/18 11:34 am DCP- Discharge Planning Updated by [id number]: April Houser on 06/15/18 11:[address] Patient Name: TAMMY CARDONA Admission Status: ER Accout number: [id number] Admission Date: 06-13-2018 : 1945 Admission Diagnosis: Attending: JOHN MESSER Current LOS: 2 Anticipated DC Date: Planned Disposition: Home Primary Insurance: [employer] ADV Discharge Planning Comments: CM MET THE PATIENT AT THE BEDSIDE. CM EXPLAINED MY ROLE. HE SAID HE WOULD ANSW ER THE QUESTIONS THAT HE COULD. HIS DAUGHTER HELPS HIM WITH HIS CARE. SHE IS HOME WAITING FOR [facility] TO DELIVER HIS OXYGEN SUPPLIES TODAY. SHE WILL BE IN TO VISIT TOMORROW. HIS [facility] CARE [facility]RU THE [facility] AT THE LOC[facility]. MARY HUBBARD APN, FOLLOWS HIM AT THE AR. HIS DAUGHTER ASSIST HIM AT HOME. HE HAS A CANE AND NEBULIZER. [place] IS DELIVERING O2 DME TODAY.HE IS ALSO GETTING A WALKER DELIVERED FROM THE [place]. HE IS ALERT AND ORIENTED. HE IS WEARING NASAL O2 AT 2/L/MIN. HIS PLAN AT THIS TIME IS TO RETURN TO HOME. HE GAVE PERMISSION FOR CM TO SPEAK WITH HIS DAUGHTER REGARDING DC PLANS AND NEEDS. TC TO [place] CL[facility]IC. SPOKE W/ [facility]. CONFIRMED PATIENT'S PRIMARY. WILL FAX H/P TO [place] [phone]. CM TO FOLLOW. Receiving Manager: April Houser DCPIA - Discharge Planning Initial Assessment Updated by [id number]: April Houser on 06/15/18 12:16 pm * Is the patient Alert and Oriented? Yes * How many steps to enter\exit or inside your home? NONE * [facility] [place] * [facility] * Preadmission Environment Home with Family * ADLs Partial Dependent * Partial ADLs (Assistance needed) Bathing Dressing * Equipment Nebulizer * Other Equipment [facility] IS SETTING UP OXYGEN TODAY AT PT'S HOME. HAS CANE AND NEBULIZER VA IS ALSO ARRANGING FOR WHEELCHAIR * List name and contact numbers for known caregivers / representatives who currently or will assist patient after discharge: ALEXIA GUILLORY- GIAN- [phone] * Verbal permission to speak to the caregivers and representatives has been obtained from the patient. Yes * Community resources currently utilized None * Please name any agencies selected above. N/A * Additional services required to return to the preadmission environment? Yes * Can the patient safely return to the preadmission environment? Yes * Has this patient been hospitalized within the prior 30 days at any hospital? No Coverage Notice Reviewer: [id number] Purvi Ponce Notice Issued Date-Time: 06/18/2018 14:04 Notice Type: IM Discharge Notice Notice Delivered To: Patient Relationship to Patient: Frame Nailer Name: Delivery Method: HAND - Hand Delivered Edie Days: Prior Verbal Notification: Recipient Understood Notice: Yes Recipient Signature: Med Rec Note Co-signed by Attending: Coverage Notice Comment: STATES UNABLE TO SIGN BUT UNDERSTOOD NOTICE, COPY LEFT WITH PATIENT. Last DP export: 06/15/18 11:30 a Patient Name: TAMMY CARDONA Page [id number] at 1034 All edits/amendments must be made on the electronic document DICTATION DATE: 06/19/18 1033 CORPORATE BUYER: JEB 06/19/18 1033 RPT#: [id number] DC DATE: STATUS: ADM IN [facility] [address] [facility] [place] [address] END OF REPORT
--- NOTE | 2018-06-19 11:27 | MORECARE ---
CASE MANAGEMENT DISCHARGE SUMMARY PATIENT: TAMMY CARDONA UNIT: [id number] ADM DATE: 06/13/18 AGE: 73 : 43 SEX: M ROOM/BED: D.1202 AUTHOR: RANGEL ESCUDERO PHYSICIAN: REFERRING PHYSICIAN: JOHN MESSER MD DATE OF SERVICE: 06/19/18 Discharge Plan Patient Name: TAMMY CARDONA Facility: [facility]:[place] : 1945 Planned Disposition: Home Anticipated Discharge Date: 06/19/18 Discharge Date: Expected LOS: 6 Initial Reviewer: [email or web address] Initial Review Date: 06/15/2018 Generated: 06/19/18 12:27 pm Comments DCP- Discharge Planning Updated by [id number]: Jonelle Ponce on 06/19/18 10:[address] Patient Name: TAMMY CARDONA Admission Status: ER Accout number: [id number] Admission Date: 06-13-2018 : 1945 Admission Diagnosis:SEPSIS, UNSPECIFIED ORGANISM Attending: JOHN MESSER Current LOS: 6 Anticipated DC Date: 06-19-2018 Planned Disposition: Home Primary Insurance: WELL[employer] MEDICARE ADV Discharge Planning Comments: CM SPOKE WITH DR. CORDOVA ABOUT PATIENT, IF HE NEEDED TO BE ON TRILOGY OR CPAP BEFORE DISCHARGE. I LET HIM KNOW IT COULD BE SEVERAL WEEKS BEFORE HE COULD GET TRILOGY THROUGH THE [facility]. HE STATED THAT WOULD BE FINE, THE PATIENT SHOULD HAVE A CPAP. I ATTEMPTED TO CALL DAUGHTER BUT NO ANSWER, SHE WILL KNOW IF CPAP HAS BEEN DELIVERED. I TALKED TO ELIZABETH MON AT [facility] AND WILL FAX DOCUMENTS TO HER. SHE IS CONCERNED ABOUT THE PATIENT BEING DISCHARGED WITHOUT A CPAP OR TRILOGY AND THINKS HE SHOULD BE TRANSFERRED TO THE [facility]. I SPOKE WITH PATIENT ABOUT THIS AND HE SAID THERE IS NO WAY [place] GO[place] THE [place] [facility]. HE SAYS HE HAS A CPAP AT HOME HE CAN USE, AND 02 AT HOME. PATIENT PLANS TO DC TODAY. SPOKE WITH DR. CORDOVA AND PATIENT IS STABLE FOR DISCHARGE. CHART REFLECTS PATIENT STABLE FROM DR. HAWTHORNE NOTE ALSO. CM WILL FAX DOCUMENTS TO [place] [facility]. CM TO FOLLOW AND ASSIST NEEDED WITH DC PLANNING/NEEDS. Cytogenetic Technician: Jonelle Ponce DCP- Discharge Planning Updated by [id number]: April Houser on 06/15/18 11:[address] Patient Name: TAMMY CARDONA Admission Status: ER Accout number: [id number] Admission Date: 06-13-2018 : 1945 Admission Diagnosis: Attending: JOHN MESSER Current LOS: 2 Anticipated DC Date: Planned Disposition: Home Primary Insurance: WE[employer] MEDICARE ADV Discharge Planning Comments: CM MET THE PATIENT AT THE BEDSIDE. CM EXPLAINED MY ROLE. HE SAID HE WOULD ANSW ER THE QUESTIONS THAT HE COULD. HIS DAUGHTER HELPS HIM WITH HIS CARE. [place] IS [place] TODAY. SHE WILL BE IN TO VISIT TOMORROW. [place] C[place] THE [place] AT THE [facility] [place] [facility]. JONELLE HUBBARD APN, FOLLOWS HIM AT THE [place]. HIS DAUGHTER ASSIST HIM AT HOME. HE HAS A CANE AND NEBULIZER. [place] IS DELIVER[place] DME TODAY.HE IS ALSO GETTING A WALKER DEL[place]ED FROM THE [place]. HE IS ALERT AND ORIENTED. HE IS WEARING NASAL O2 AT 2/L/MIN. HIS PLAN AT THIS TIME IS TO RETURN TO HOME. HE GAVE PERMISSION FOR CM TO SPEAK WITH HIS DAUGHTER REGARDING DC PLANS AND NEEDS. TC TO [place] CLINIC. SPOKE W/ [facility]ONSON. CONFIRMED PATIENT'S PRIMARY. WILL FAX H/P TO [place] [phone]. CM TO FOLLOW. Cytogenetic Technician: April Houser DCPIA - Discharge Planning Initial Assessment Updated by [id number]: April Houser on 06/15/18 12:16 pm * Is the patient Alert and Oriented? Yes * How many steps to enter\exit or inside your home? NONE * [facility] [place] * [facility] [place] [facility]- [facility] [address] * Preadmission Environment Home with Family * ADLs Partial Dependent * Partial ADLs (Assistance needed) Bathing Dressing * Equipment Nebulizer * Other Equipment [place] IS SETTING [place]GEN TODAY AT PT'S HOME. HAS CANE AND NEBULIZER [place] IS ALSO [place]ING FOR WHEELCHAIR * List name and contact numbers for known caregivers / representatives who currently or will assist patient after discharge: ALEXIA GUILLORY- DAUGHTER- [phone] * Verbal permission to speak to the caregivers and representatives has been obtained from the patient. Yes * Community resources currently utilized None * Please name any agencies selected above. N/A * Additional services required to return to the preadmission environment? Yes * Can the patient safely return to the preadmission environment? Yes * Has this patient been hospitalized within the prior 30 days at any hospital? No Coverage Notice Reviewer: [id number] Purvi Jonellesusu Ponce Notice Issued Date-Time: 06/18/2018 14:04 Notice Type: IM Discharge Notice Notice Delivered To: Patient Relationship to Patient: Emergency Operator Name: Delivery Method: HAND - Hand Delivered Edie Days: Prior Verbal Notification: Recipient Understood Notice: Yes Recipient Signature: Med Rec Note Co-signed by Attending: Coverage Notice Comment: STATES UNABLE TO SIGN BUT UNDERSTOOD NOTICE, COPY LEFT WITH PATIENT. Last DP export: 06/19/18 9:34 a Patient Name: TAMMY CARDONA Page [id number] at 1127 All edits/amendments must be made on the electronic document DICTATION DATE: 06/19/181126 CLINICAL DOCUMENTATION NURSE: JEB 06/19/18 112 RPT#: [id number] DC DATE: STATUS: ADM IN [facility] [address] [place] [address] END OF REPORT
--- NOTE | 2018-06-19 11:44 | MORECARE ---
CASE MANAGEMENT DISCHARGE SUMMARY PATIENT: TAMMY CARDONA UNIT: [id number] ADM DATE: 06/13/18 AGE: 73 : 43 SEX: M ROOM/BED: D.1202 AUTHOR: RANGEL ESCUDERO PHYSICIAN: REFERRING PHYSICIAN: JOHN MESSER MD DATE OF SERVICE: 06/19/18 Discharge Plan Patient Name: TAMMY CARDONA Facility: [facility]:[place] : 1945 Planned Disposition: Home Anticipated Discharge Date: 06/19/18 Discharge Date: Expected LOS: 6 Initial Reviewer: [id number] Initial Review Date: 06/15/2018 Generated: 06/19/18 12:44 pm Comments DCP- Discharge Planning Updated by [id number]: Jonelle Ponce on 06/19/18 10:[address] Patient Name: TAMMY CARDONA Admission Status: ER Accout number: [id number] Admission Date: 06-13-2018 : 1945 Admission Diagnosis:SEPSIS, UNSPECIFIED ORGANISM Attending: JOHN MESSER Current LOS: 6 Anticipated DC Date: 06-19-2018 Planned Disposition: Home Primary Insurance: [employer] MED[employer]ARE ADV Discharge Planning Comments: CM SPOKE WITH DR. CORDOVA ABOUT PATIENT, IF HE NEEDED TO BE ON TRILOGY OR CPAP BEFORE DISCHARGE. I LET HIM KNOW IT COULD BE SEVERAL WEEKS BEFORE [facility] COULD [facility]. HE STATED THAT WOULD BE FINE, THE PATIENT SHOULD HAVE A CPAP. I ATTEMPTED TO CALL DAUGHTER BUT NO ANSWER, SHE WILL KNOW IF CPAP HAS BEEN DELIVERED. I TALKED TO ELIZABETH MON AT [facility] AND WILL FAX DOCUMENTS TO HER. SHE IS CONCERNED ABOUT THE PATIENT BEING DISCHARGED WITHOUT A CPAP OR TRILOGY AND THINKS HE SH[facility] I SPOKE WITH PATIENT ABOUT THIS AND HE SAID THERE IS NO WAY HE IS GOING TO THE [facility]. HE SAYS HE HAS A CPAP AT HOME HE CAN USE, AND 02 AT HOME. PATIENT PLANS TO DC TODAY. SPOKE WITH DR. CORDOVA AND PATIENT IS STABLE FOR DISCHARGE. CHART REFLECTS PATIENT STABLE FROM DR. HAWTHORNE NOTE ALSO. CM WILL FAX DOCUMENTS TO [facility]. CM TO FOLLOW AND ASSIST NEEDED WITH DC PLANNING/NEEDS. Director Of Radio Services: Jonelle Ponce DCP- Discharge Planning Updated by [id number]: April Houser on 06/15/18 11:[address] Patient Name: TAMMY CARDONA Admission Status: ER Accout number: [id number] Admission Date: 06-13-2018 : 1945 Admission Diagnosis: Attending: JOHN MESSER Current LOS: 2 Anticipated DC Date: Planned Disposition: Home Primary Insurance: [employer] MEDICARE ADV Discharge Planning Comments: CM MET THE PATIENT AT THE BEDSIDE. CM EXPLAINED MY ROLE. HE SAID HE WOULD ANSW ER THE QUESTIONS THAT HE COULD. HIS DAUGHTER HELPS HIM WITH HIS CARE. SHE IS HOME WAITING FOR [facility] TO DELIVER HIS OXYGEN SUPPLIES TODAY. SHE WILL BE IN TO VISIT TOMORROW. HIS [facility] CARE [facility]RU THE [facility] AT THE [facility] [place] [facility]. JONELLE HUBBARD APN, FOLLOWS HIM AT THE [facility]. HIS DAUGHTER ASSIST HIM AT HOME. HE HAS A CANE AND NEBULIZER. [facility] IS DELIVERING O2 DME TODAY.HE IS ALSO GETTING A WALKER DELIVERED FROM THE [facility]. HE IS ALERT AND ORIENTED. HE IS WEARING NASAL O2 AT 2/L/MIN. HIS PLAN AT THIS TIME IS TO RETURN TO HOME. HE GAVE PERMISSION FOR CM TO SPEAK WITH HIS DAUGHTER REGARDING DC PLANS AND NEEDS. TC TO [facility]. SPOKE W/ BRONSON. CONFIRMED PATIENT'S PRIMARY. WILL FAX H/P TO [place] [phone]. CM TO FOLLOW. Director Of Radio Services: April Houser DCPIA - Discharge Planning Initial Assessment Updated by [id number]: April Houser on 06/15/18 12:16 pm * Is the patient Alert and Oriented? Yes * How many steps to enter\exit or inside your home? NONE * [facility] [place] * [facility] [address] * Preadmission Environment Home with Family * ADLs Partial Dependent * Partial ADLs (Assistance needed) Bathing Dressing * Equipment Nebulizer * Other Equipment [facility] IS SETTING UP OXYGEN TODAY AT PT'S HOME. HAS CANE AND NEBULIZER [facility] IS ALSO ARRANGING FOR WHEELCHAIR * List name and contact numbers for known caregivers / representatives who currently or will assist patient after discharge: ALEXIA GUILLORY- DAUGHTER- [phone] * Verbal permission to speak to the caregivers and representatives has been obtained from the patient. Yes * Community resources currently utilized None * Please name any agencies selected above. N/A * Additional services required to return to the preadmission environment? Yes * Can the patient safely return to the preadmission environment? Yes * Has this patient been hospitalized within the prior 30 days at any hospital? No External Providers External Provider: OTHER-OTHER Next Contact Date: Service Request Date: Service Type: Resolution: Reviewer: Comments: Coverage Notice Reviewer: [id number] - Jonelle Ponce Notice Issued Date-Time: 06/18/2018 14:04 Notice Type: IM Discharge Notice Notice Delivered To: Patient Relationship to Patient: Operations Assistant Name: Delivery Method: HAND - Hand Delivered Edie Days: Prior Verbal Notification: Recipient Understood Notice: Yes Recipient Signature: Med Rec Note Co-signed by Attending: Coverage Notice Comment: STATES UNABLE TO SIGN BUT UNDERSTOOD NOTICE, COPY LEFT WITH PATIENT. Last DP export: 06/19/18 10:27 a Patient Name: TAMMY CARDONA Page 06952 at 1144 All edits/amendments must be made on the electronic document DICTATION DATE: 06/19/18 1144 LOADING SUPERVISOR: JEB 06/19/18 1144 RPT#: [id number] DC DATE: STATUS: ADM IN [facility] [address] [place] [address] END OF REPORT
--- NOTE | 2018-06-19 14:20 | NUR ---
D/C PTS L.FA PIV WITH CATHETER TIP FULLY INTACT. DISCHARGE TEACHING PROVIDED AND PAPERS SIGNED. PT VERBALIZED UNDERSTANDING AND DENIES ANY QUESTIONS OR CONCERNS. ALL BELONGINGS COLLECTED AND SENT WITH PTS DAUGHTER. PT READY TO LEAVE NOW. NO FURTHER NEEDS. RETURNED TELEMETRY TO [facility].
[2018-06-19 14:21] LABS: INFLUENZA A PCR Negative (Negative); INFLUENZA B PCR Negative (Negative)
--- NOTE | 2018-06-19 14:57 | OP ---
PATIENT NAME: TAMMY CARDONA MEDICAL RECORD: [id number] :43 LOCATION:D.M3 D.1202 ADMISSION DATE:06/13/18 SURGEON: KYREE STONE MD DATE OF OPERATION: 06/15/2018 PROCEDURES: 1. PTCA stent left circumflex. 2. PTCA stent LAD. 3. Left heart catheterization. 4. Selective coronary angiography. 5. Left ventriculogram. 6. Four-vessel carotid and vertebral angiography. INDICATION: Angina, coronary artery disease, shortness of breath, dyspnea on exertion, carotid vascular disease, syncope. PROCEDURE IN DETAIL: After informed consent was obtained and after a detailed description of risks, benefits as well as alternative therapies, the patient elected to proceed with angiogram and angioplasty. The right femoral area was prepped and draped in normal sterile fashion. The right femoral artery was cannulated via modified Seldinger technique with placement of 6-[place]an sheath. All catheters exchanged through this sheath. FINDINGS: There was subselection of each subclavian as well as the left carotid. RIGHT SIDE: The common internal and external carotids have mild plaquing, no greater than 20%, no flow-limiting stenosis. Vertebral artery has no significant disease. LEFT SYSTEM: The common internal and external carotids have mild plaquing, none greater than 20%, no flow-limiting stenosis. Vertebral artery has no significant stenosis. Left ventriculogram was performed in standard 30-degree CABAN view reveals preserved ejection fraction at 55%. SELECTIVE CORONARY ANGIOGRAPHY: 1. Left main is with no significant angiographic disease. 2. Left anterior descending has greater than 70% stenosis proximally. After that, there is previously placed stent that is widely patent. No disease elsewise throughout the LAD or its branches. 3. The circumflex has previously placed stent with greater than 80% in-stent restenosis. 4. Right coronary artery has moderate irregularities, but no flow-limiting stenosis. PTCA STENT OF THE LAD AND CIRCUMFLEX: The LAD was addressed with a 3.0 x 15 mm Integrity, the circumflex with a 2.75 x 15 mm Integrity. Result was 0% residual stenosis. OVERALL IMPRESSION: Successful percutaneous transluminal coronary angioplasty stent of the left anterior descending and circumflex, both going from 70+ percent initial stenosis to 0% residual. TRANSINT:[id number] Voice Confirmation ID: [id number] DOCUMENT ID: [id number] OPERATIVE REPORT [id number] TAMMY CARDONA, KYREE NARAYANAN at 2667 CC: [id number] DICTATION DATE: 06/15/18 1323 STOCKROOM SELECTOR: 06/15/18 1334 DIS IN 06/19/18 [id number] [place] [address]
--- NOTE | 2018-06-19 15:18 | MORECARE ---
CASE MANAGEMENT DISCHARGE SUMMARY PATIENT: TAMMY CARDONA UNIT: [id number] ADM DATE: 06/13/18 AGE: 73 : 43 SEX: M ROOM/BED: D.1202 AUTHOR: RANGEL ESCUDERO PHYSICIAN: REFERRING PHYSICIAN: JOHN MESSER MD DATE OF SERVICE: 06/19/18 Discharge Plan Patient Name: TAMMY CARDONA Facility: [facility]:[place] : 1945 Planned Disposition: Home Anticipated Discharge Date: 06/19/18 Discharge Date: 06/19/2018 Expected LOS: 6 Initial Reviewer: [id number] Initial Review Date: 06/15/2018 Generated: 06/19/18 4:17 pm Comments DCP- Discharge Planning Updated by [email or web address]: Jonelle Ponce on 06/19/18 2:[address] Patient Name: TAMMY CARDONA Encounter No: [id number] : 1945 Primary Insurance: [employer] MEDICARE ADV Anticipated DC Date: 06-19-2018 Planned Disposition: Home External Planned Provider: : DCP follow-up note: Patient and family in agreement with discharge plan. No changes to plan. Case management will follow and assist as needed. DISCHARGED TO HOME WITH DAUGHTER. Jonelle Ponce DCP- Discharge Planning Updated by [id number]: Jonelle Ponce on 06/19/18 10:[address] Patient Name: TAMMY CARDONA Admission Status: ER Accout number: [id number] Admission Date: 06-13-2018 : 1945 Admission Diagnosis:SEPSIS, UNSPECIFIED ORGANISM Attending: JOHN MESSER Current LOS: 6 Anticipated DC Date: 06-19-2018 Planned Disposition: Home Primary Insurance: [employer] MEDICARE ADV Discharge Planning Comments: CM SPOKE WITH DR. CORDOVA ABOUT PATIENT, IF HE NEEDED TO BE ON TRILOGY OR CPAP BEFORE DISCHARGE. I LET HIM KNOW IT COULD BE SEVERAL WEEKS BEFORE HE COULD GET TRILOGY THROUGH THE VA. HE STATED THAT WOULD BE FINE, THE PATIENT SHOULD HAVE A CPAP. I ATTEMPTED TO CALL DAUGHTER BUT NO ANSWER, SHE WILL KNOW IF CPAP HAS BEEN DELIVERED. I TALKED TO ELIZABETH MON AT [facility] AND WILL FAX DOCUMENTS TO HER. SHE IS CONCERNED ABOUT THE PATIENT BEING DISCHARGED WITHOUT A CPAP OR TRILOGY AND THINKS HE SHOULD BE TRANSFERRED TO THE [facility]. I SPOKE WITH PATIENT ABOUT THIS AND HE SAID THERE IS NO WAY HE IS GOING TO THE [facility]. HE SAYS HE HAS A CPAP AT HOME HE CAN USE, AND 02 AT HOME. PATIENT PLANS TO DC TODAY. SPOKE WITH DR. CORDOVA AND PATIENT IS STABLE FOR DISCHARGE. CHART REFLECTS PATIENT STABLE FROM DR. HAWTHORNE NOTE ALSO. CM WILL FAX DOCUMENTS TO [facility]. CM TO FOLLOW AND ASSIST NEEDED WITH DC PLANNING/NEEDS. Director Loss Prevention: Jonelle Ponce DCP- Discharge Planning Updated by [id number]: April Houser on 06/15/18 11:[address] Patient Name: TAMMY CARDONA Admission Status: ER Accout number: [id number] Admission Date: 06-13-2018 : 1945 Admission Diagnosis: Attending: JOHN MESSER Current LOS: 2 Anticipated DC Date: Planned Disposition: Home Primary Insurance: [employer] MEDICARE ADV Discharge Planning Comments: CM MET THE PATIENT AT THE BEDSIDE. CM EXPLAINED MY ROLE. HE SAID HE WOULD ANSW ER THE QUESTIONS THAT HE COULD. HIS DAUGHTER HELPS HIM WITH HIS CARE. SHE IS HOME WAITING FOR [facility] TO DELIVER HIS OXYGEN SUPPLIES TODAY. SHE WILL BE IN TO VISIT TOMORROW. HIS PR[facility] CARE IN [facility]RU THE [facility] AT THE LOCAL [place] [facility]. JONELLE HUBBARD APN, FOLLOWS HIM AT THE [facility]. HIS DAUGHTER ASSIST HIM AT HOME. HE HAS A CANE AND NEBULIZER. [facility] IS DELIVERING O2 DME TODAY.HE IS ALSO GETTING A WALKER DELIVERED FROM THE [facility]. HE IS ALERT AND ORIENTED. HE IS WEARING NASAL O2 AT 2/L/MIN. HIS PLAN AT THIS TIME IS TO RETURN TO HOME. HE GAVE PERMISSION FOR CM TO SPEAK WITH HIS DAUGHTER REGARDING DC PLANS AND NEEDS. TC TO [facility]. SPOKE W/ BRONSON. CONFIRMED PATIENT'S PRIMARY. WILL FAX H[facility]P TO [facility] [phone]. CM TO FOLLOW. Director Loss Prevention: April Houser DCPIA - Discharge Planning Initial Assessment Updated by [email or web address]: April Houser on 06/15/18 12:16 pm * Is the patient Alert and Oriented? Yes * How many steps to enter\exit or inside your home? NONE * [facility] [place] * [facility] ON [address] * Preadmission Environment Home with Family * ADLs Partial Dependent * Partial ADLs (Assistance needed) Bathing Dressing * Equipment Nebulizer * Other Equipment [facility] IS SETTING UP OXYGEN TODAY AT PT'S HOME. HAS CANE AND NEBULIZER [facility] IS ALSO ARRANGING FOR WHEELCHAIR * List name and contact numbers for known caregivers / representatives who currently or will assist patient after discharge: ALEXIA GUILLORY- GIAN- [phone] * Verbal permission to speak to the caregivers and representatives has been obtained from the patient. Yes * Community resources currently utilized None * Please name any agencies selected above. N/A * Additional services required to return to the preadmission environment? Yes * Can the patient safely return to the preadmission environment? Yes * Has this patient been hospitalized within the prior 30 days at any hospital? No Coverage Notice Reviewer: [id number] Purvi Ponce Notice Issued Date-Time: 06/18/2018 14:04 Notice Type: IM Discharge Notice Notice Delivered To: Patient Relationship to Patient: Waffle Machine Operator Name: Delivery Method: HAND - Hand Delivered Edie Days: Prior Verbal Notification: Recipient Understood Notice: Yes Recipient Signature: Med Rec Note Co-signed by Attending: Coverage Notice Comment: STATES UNABLE TO SIGN BUT UNDERSTOOD NOTICE, COPY LEFT WITH PATIENT. Last DP export: 06/19/18 10:44 a Patient Name: TAMMY CARDONA Page 63096 at 1518 All edits/amendments must be made on the electronic document DICTATION DATE: 06/19/181516 ACOUSTICAL ENGINEER: JEB 06/19/181516 RPT#: [id number] DC DATE:06/19/18 STATUS: DIS IN [facility] [address] [place] [address] END OF REPORT
--- NOTE | 2018-06-19 15:29 | MORECARE ---
CASE MANAGEMENT DISCHARGE SUMMARY PATIENT: TAMMY CARDONA UNIT: [id number] ADM DATE: 06/13/18 AGE: 73 : 43 SEX: M ROOM/BED: D.1202 AUTHOR: ARNGEL ESCUDERO PHYSICIAN: REFERRING PHYSICIAN: JOHN MESSER MD DATE OF SERVICE: 06/19/18 Discharge Plan Patient Name: TAMMY CARDONA Facility: [facility]:[place] : 1945 Planned Disposition: Home Anticipated Discharge Date: 06/19/18 Discharge Date: 06/19/2018 Expected LOS: 6 Initial Reviewer: [id number] Initial Review Date: 06/15/2018 Generated: 06/19/18 4:29 pm Comments DCP- Discharge Planning Updated by [email or web address]: Jonelle Ponce on 06/19/18 2:[address] Patient Name: TAMMY CARDONA Encounter No: [id number] : 1945 Primary Insurance: [employer] MEDICARE ADV Anticipated DC Date: 06-19-2018 Planned Disposition: Home External Planned Provider: : DCP follow-up note: Patient and family in agreement with discharge plan. No changes to plan. Case management will follow and assist as needed. DISCHARGED TO HOME WITH DAUGHTER. Jonelle Ponce DCP- Discharge Planning Updated by [id number]: Jonelle Ponce on 06/19/18 10:[address] Patient Name: TAMMY CARDONA Admission Status: ER Accout number: [id number] Admission Date: 06-13-2018 : 1945 Admission Diagnosis:SEPSIS, UNSPECIFIED ORGANISM Attending: JOHN MESSER Current LOS: 6 Anticipated DC Date: 06-19-2018 Planned Disposition: Home Primary Insurance: [employer] MEDICARE ADV Discharge Planning Comments: CM SPOKE WITH DR. CORDOVA ABOUT PATIENT, IF HE NEEDED TO BE ON TRILOGY OR CPAP BEFORE DISCHARGE. I LET HIM KNOW IT COULD BE SEVERAL WEEKS BEFORE HE COULD GET TRILOGY THROUGH THE VA. HE STATED THAT WOULD BE FINE, THE PATIENT SHOULD HAVE A CPAP. I ATTEMPTED TO CALL DAUGHTER BUT NO ANSWER, SHE WILL KNOW IF CPAP HAS BEEN DELIVERED. I TALKED TO ELIZABETH MON AT [facility] AND WILL FAX DOCUMENTS TO HER. SHE IS CONCERNED ABOUT THE PATIENT BEING DISCHARGED WITHOUT A CPAP OR TRILOGY AND THINKS HE SHOULD BE TRAN[facility]ED TO THE [facility]. I SPOKE WITH PATIENT ABOUT THIS AND HE SAID THERE IS NO WAY HE IS GOING TO THE [facility]. HE SAYS HE HAS A CPAP AT HOME HE CAN USE, AND 02 AT HOME. PATIENT PLANS TO DC TODAY. SPOKE WITH DR. CORDOVA AND PATIENT IS STABLE FOR DISCHARGE. CHART REFLECTS PATIENT STABLE FROM DR. HAWTHORNE NOTE ALSO. CM WILL FAX DOCUMENTS TO [place] [facility]. CM TO FOLLOW AND ASSIST NEEDED WITH DC PLANNING/NEEDS. Pharmacy Order Entry Technician: Jonelle Ponce DCP- Discharge Planning Updated by [email or web address]: April Houser on 06/15/18 11:[address] Patient Name: TAMMY CARDONA Admission Status: ER Accout number: [id number] Admission Date: 06-13-2018 : 1945 Admission Diagnosis: Attending: JOHN MESSER Current LOS: 2 Anticipated DC Date: Planned Disposition: Home Primary Insurance: [employer] MEDICARE ADV Discharge Planning Comments: CM MET THE PATIENT AT THE BEDSIDE. CM EXPLAINED MY ROLE. HE SAID HE WOULD ANSW ER THE QUESTIONS THAT HE COULD. HIS DAUGHTER HELPS HIM WITH HIS CARE. SHE IS HOME WAITING FOR [facility] TO DELIVER HIS OXYGEN SUPPLIES TODAY. SHE WILL BE IN TO VISIT TOMORROW. [facility]RU THE [facility] AT THE [facility] [place] [facility]. JONELLE UHBBARD APN, FOLLOWS HIM AT THE [facility]. HIS DAUGHTER ASSIST HIM AT HOME. HE HAS A CANE AND NEBULIZER. [facility] IS DELIVERING O2 DME TODAY.HE IS ALSO GETTING A WALKER DELIVERED FROM THE [facility]. HE IS ALERT AND ORIENTED. HE IS WEARING NASAL O2 AT 2/L/MIN. HIS PLAN AT THIS TIME IS TO RETURN TO HOME. HE GAVE PERMISSION FOR CM TO SPEAK WITH HIS DAUGHTER REGARDING DC PLANS AND NEEDS. TC TO [place] [facility]. SPOKE W/ BRONSON. CONFIRMED PATIENT'S PRIMARY. WILL FAX H[facility]P TO [facility] [phone]. CM TO FOLLOW. Pharmacy Order Entry Technician: April Houser DCPIA - Discharge Planning Initial Assessment Updated by [id number]: April Houser on 06/15/18 12:16 pm * Is the patient Alert and Oriented? Yes * How many steps to enter\exit or inside your home? NONE * [facility] [place] * [facility] ON [address] * Preadmission Environment Home with Family * ADLs Partial Dependent * Partial ADLs (Assistance needed) Bathing Dressing * Equipment Nebulizer * Other Equipment [facility] IS SETTING UP OXYGEN TODAY AT PT'S HOME. HAS CANE AND NEBULIZER VA IS ALSO ARRANGING FOR WHEELCHAIR * List name and contact numbers for known caregivers / representatives who currently or will assist patient after discharge: ALEXIA GUILLORY- GIAN- [phone] * Verbal permission to speak to the caregivers and representatives has been obtained from the patient. Yes * Community resources currently utilized None * Please name any agencies selected above. N/A * Additional services required to return to the preadmission environment? Yes * Can the patient safely return to the preadmission environment? Yes * Has this patient been hospitalized within the prior 30 days at any hospital? No Coverage Notice Reviewer: [id number] Purvi Ponce Notice Issued Date-Time: 06/18/2018 14:04 Notice Type: IM Discharge Notice Notice Delivered To: Patient Relationship to Patient: Cloth Examiner Hand Name: Delivery Method: HAND - Hand Delivered Edie Days: Prior Verbal Notification: Recipient Understood Notice: Yes Recipient Signature: Med Rec Note Co-signed by Attending: Coverage Notice Comment: STATES UNABLE TO SIGN BUT UNDERSTOOD NOTICE, COPY LEFT WITH PATIENT. Last DP export: 06/19/18 2:17 p Patient Name: TAMMY CARDONA Page 43018 at 1529 All edits/amendments must be made on the electronic document DICTATION DATE: 06/19/181527 FIRE LOSS PREVENTION ENGINEER: JEB 06/19/181527 RPT#: [id number] DC DATE:06/19/18 STATUS: DIS IN [facility] [address] [facility] [address] END OF REPORT
== END 2018-06-19 14:21 | disposition home or self-care (01) | DRG 853 ==
LOC: D.ER 21:48 → D.M3 23:50 → D.M2 23:50 → D.MS 23:50 → D.ICU 23:50 → D.M2 06-15 12:53 → D.ICU 06-15 18:41 → D.M3 06-17 15:49
PROVIDERS: Family Medicine; Internal Medicine Interventional Cardiology; Internal Medicine Nephrology; Internal Medicine Pulmonary Disease; ADMIT Emergency Medicine; ATTEND Emergency Medicine
PROC: 4A023N7 Measurement of Cardiac Sampling and Pressure, Left Heart, Percutaneous Approach (ICD-10-PCS; 2018-06-15)
PROC: B30 Imaging, Upper Arteries, Plain Radiography (ICD-10-PCS; 2018-06-15)
PROC: B30N1ZZ Plain Radiography of Other Upper Arteries using Low Osmolar Contrast (ICD-10-PCS; 2018-06-15)
PROC: B3021ZZ Plain Radiography of Left Subclavian Artery using Low Osmolar Contrast (ICD-10-PCS; 2018-06-15)
PROC: 02713EZ Dilation of Coronary Artery, Two Arteries with Two Intraluminal Devices, Percutaneous Approach (ICD-10-PCS; principal; 2018-06-15 12:16)
PROC: B2111ZZ Fluoroscopy of Multiple Coronary Arteries using Low Osmolar Contrast (ICD-10-PCS; 2018-06-15 12:16)
PROC: B2151ZZ Fluoroscopy of Left Heart using Low Osmolar Contrast (ICD-10-PCS; 2018-06-15 12:16)
DX: A41.9 Sepsis, unspecified organism (principal); J18.9 Pneumonia, unspecified organism; J96.01 Acute respiratory failure with hypoxia; J96.02 Acute respiratory failure with hypercapnia; J44.1 Chronic obstructive pulmonary disease with (acute) exacerbation; J44.0 Chronic obstructive pulmonary disease with (acute) lower respiratory infection; N17.9 Acute kidney failure, unspecified; R55 Syncope and collapse; I10 Essential (primary) hypertension; I48.91 Unspecified atrial fibrillation; I25.10 Atherosclerotic heart disease of native coronary artery without angina pectoris; E87.6 Hypokalemia; E86.0 Dehydration; D75.89 Other specified diseases of blood and blood-forming organs; R53.81 Other malaise

== ENCOUNTER 2018-08-04 15:21 | Inpatient (IN) | payer MEDICARE ==
[~2018-08-04] VITALS: Ht 188 cm; Wt 104.3 kg
[~2018-08-04 15:21] MED LIST: BETAPACE 80 MG80 MG PO; BROVANA15 MCG/2 M INH; CARDIZEM120 MG PO; CHRONULAC30 ML PO; CYMBALTA60 MG PO; IPRAT-ALBUT 0.5-3 ML UPD; LYRICA100 MG PO; MORPHINE IMMEDI15 MG PO; OMNICEF300 MG PO; PLAVIX75 MG PO; PREDNISONE20 MG PO; PROTONIX40 MG PO; PULMICORT0.5 MG/21 INH; REMERON15 MG PO; SINGULAIR10 MG PO; STERAPRED DS 1210 MG PO; TRAMADOL HCL E100 M1 PO; VIBRAMYCIN 100100 MG PO; XANAX1 MG PO; ZANAFLEX4 MG PO
[2018-08-04] MEDS ORDERED: TESSALON PERLE100 MG PO (15:27)
[2018-08-04] MEDS ORDERED: SYMBICORT 16010.2 GM INH (15:27)
[2018-08-04] MEDS ORDERED: ASPIRIN81 MG PO (15:28)
[2018-08-04] MEDS ORDERED: MOBIC7.5 MG PO (15:28)
[2018-08-04 16:20] LABS: BASOPHILS 0.4 % (0-2); EOSINOPHILS 1.8 % (0-7); HEMATOCRIT 38.5 % (42.0-54.0); HEMOGLOBIN 13.3 g/dL (13.5-17.5); IMMATURE GRANULOCYTES 0.3 % (0-5); LYMPHOCYTES 13.1 % (15-50); MCH 33.1 pg (26.0-34.0); MCHC 34.5 g/dL (31.0-37.0); MCV 95.8 fL (80.0-100.0); MONOCYTES 6.8 % (2-11); NEUTROPHILS 77.6 % (40-80); RBC 4.02 10x6/uL (4.20-6.10); RDW 13.3 % (11.5-14.5); WBC 7.4 10x3/uL (4.8-10.8)
[2018-08-04 16:21] LABS: PLATELET COUNT 187 10x3/uL (130-400)
[2018-08-04 16:35] LABS: ALBUMIN 3.4 g/dL (3.4-5.0); ANION GAP 12.2 mmol/L (8-16); BILIRUBIN - TOTAL 0.48 mg/dL (0.2-1.3); CALCIUM 8.5 mg/dL (8.5-10.1); CARBON DIOXIDE 28.7 mmol/L (21.0-32.0); CREATININE - SERUM 1.2 mg/dL (0.6-1.3); POTASSIUM - SERUM 3.9 mmol/L (3.5-5.1); PROTEIN - SERUM 6.8 g/dL (6.4-8.2)
[2018-08-04 16:37] LABS: INR 1.11 (0.85-1.17); PROTIME 13.8 SECONDS (11.6-15.0)
[2018-08-04 17:00] VITALS: BP 136/68
[2018-08-04 18:48] VITALS: BP 112/66
[2018-08-04 19:32] VITALS: BP 138/81; BMI 29.6
[2018-08-05] VITALS: BP 108/62
[2018-08-05 03:52] VITALS: BP 118/57
--- NOTE | 2018-08-05 04:03 | NUR ---
IV FELL OUT RESITED TO LEFT HAND ATEMPT X3 22GA IN PLACE.
[2018-08-05 06:03] LABS: ANION GAP 9.4 mmol/L (8-16); CALCIUM 8.7 mg/dL (8.5-10.1); CARBON DIOXIDE 32.2 mmol/L (21.0-32.0); CREATININE - SERUM 1.2 mg/dL (0.6-1.3); MAGNESIUM - SERUM 1.8 mg/dL (1.8-2.4); POTASSIUM - SERUM 3.6 mmol/L (3.5-5.1)
[2018-08-05 06:08] LABS: BASOPHILS 0.3 % (0-2); EOSINOPHILS 1.9 % (0-7); HEMATOCRIT 37.3 % (42.0-54.0); HEMOGLOBIN 12.6 g/dL (13.5-17.5); IMMATURE GRANULOCYTES 0.3 % (0-5); LYMPHOCYTES 14.9 % (15-50); MCH 32.7 pg (26.0-34.0); MCHC 33.8 g/dL (31.0-37.0); MCV 96.9 fL (80.0-100.0); MEAN PLATELET VOLUME 11.5 fL (7.4-10.4); MONOCYTES 10.5 % (2-11); NEUTROPHILS 72.1 % (40-80); PLATELET COUNT 195 10x3/uL (130-400); RBC 3.85 10x6/uL (4.20-6.10); RDW 13.6 % (11.5-14.5)
--- NOTE | 2018-08-05 08:00 | NUR ---
MORNING ASSESSMENT COMPLETE. SEE ASSESSMENT FLOWSHEET FOR FURTHER DETAIOLS. PT LYING IN BED AAO X4 TO PERSON, PLACE, TIME, AND SITUATION. DENIES NEEDS AT THIS TIME. CL IN REACH. SIDE RAILS UP X3 FOR PT SAFETY. BED IN LOWEST POSITION. GOING IN FOR R SHOULDER SX TODAY.
[2018-08-05 09:00] VITALS: BP 107/50
[2018-08-05 13:13] VITALS: BP 117/55
[2018-08-05 14:38] VITALS: Ht 188 cm; Wt 104.3 kg
--- NOTE | 2018-08-05 19:00 | NUR ---
CALL FROM [facility] REPORTS HEART RATE IN 160'S TO 170'S, JAZMYN PAGED BY PREVIOUS SHIFT AWAITING RETURN CALL, SEE SHIFT ASSESSMENT, DENIES CHEST PAIN OR SHORTNESS OF BREATH, STATES TAKES CARDIZEM AND SEES DR STONE FOR HEART.
[2018-08-05 20:00] VITALS: BP 130/75
--- NOTE | 2018-08-05 20:30 | NUR ---
DR CORDOVA PAGEDeepa FERRY BOAT CAPTAIN FOR DAILY, INFORMED OF HR 170,S A FIB, AND HOME MEDICATION OF CARDIZEM NOT REORDERED, ORDERS RECIEVED TO GIVE 240MG NOW AND THEN 180 MG BID. JR NOTIFIED
--- NOTE | 2018-08-05 21:11 | NUR ---
CARDIZEM 240MG GIVEN ORDERED, HR REMAINS 130'S TO 160'S
[2018-08-06] VITALS: BP 114/67
[2018-08-06 04:00] VITALS: BP 116/65
[2018-08-06 09:20] VITALS: BP 122/61
--- NOTE | 2018-08-06 09:26 | NUR ---
ALERT AND ORIENTED X 3. LUNGS CLEAR BILATERALLY IN ALL SHERIFF. HEART SOUNDS S1 AND S2 HEARD IN ALL SHERIFF. BOWEL SOUNDS ACTIVE X 4. SKIN INTACT WITHOUT REDNESS. IV TO LEFT AC PATENT WITHOUT REDNESS. IV TO LEFT HAND REMOVED. DRESSING CHANGED TO RIGHT SHOULDER PER MD ORDER. INCISION INTACT WITHOUT DRAINAGE OR REDNESS. WILL CONTINUE TO MONITOR.
[2018-08-06 10:36] LABS: BASOPHILS 0 % (0-2); EOSINOPHILS 0 % (0-7); HEMATOCRIT 34.3 % (42.0-54.0); HEMOGLOBIN 11.6 g/dL (13.5-17.5); IMMATURE GRANULOCYTES 0.4 % (0-5); LYMPHOCYTES 6.2 % (15-50); MCH 32.7 pg (26.0-34.0); MCHC 33.8 g/dL (31.0-37.0); MCV 96.6 fL (80.0-100.0); MEAN PLATELET VOLUME 10.3 fL (7.4-10.4); MONOCYTES 6.2 % (2-11); NEUTROPHILS 87.2 % (40-80); PLATELET COUNT 178 10x3/uL (130-400); RBC 3.55 10x6/uL (4.20-6.10); RDW 13.5 % (11.5-14.5)
[2018-08-06 10:39] LABS: WBC 15.9 10x3/uL (4.8-10.8)
[2018-08-06 10:53] LABS: ALBUMIN 3.3 g/dL (3.4-5.0); ANION GAP 11.4 mmol/L (8-16); BILIRUBIN - TOTAL 0.62 mg/dL (0.2-1.3); CALCIUM 8.7 mg/dL (8.5-10.1); CARBON DIOXIDE 31.5 mmol/L (21.0-32.0); CREATININE - SERUM 1.1 mg/dL (0.6-1.3); POTASSIUM - SERUM 3.9 mmol/L (3.5-5.1); PROTEIN - SERUM 6.8 g/dL (6.4-8.2)
[2018-08-06] MEDS ORDERED: XARELTO10 MG PO (11:45)
[2018-08-06] MEDS ORDERED: CARDIZEM CD180 MG PO (11:46)
--- NOTE | 2018-08-06 12:39 | NUR ---
SITTING IN BED. DENIES PAIN. DENIES NEEDS. DAUGHTER AT BEDSIDE.
--- NOTE | 2018-08-06 13:11 | NUR ---
DISCHARGE EDUCATION PROVIDED BOTH WRITTEN AND VERBAL. VERBALIZED UNDERSTANDING. EXTRA DRESSING SENT HOME WITH PATIENT. EDUCATION PROVIDED. VERBALIZED UNDERSTANDING. IV REMOVED TO LEFT AC WITH TIP INTACT. PATIENT DISCHARGED HOME WITH DAUGHTER WITH ALL BELONGINGS.
== END 2018-08-06 13:24 | disposition home or self-care (01) | DRG 494 ==
LOC: D.ER 15:21 → D.EDHOLD 17:56 → D.MS 17:56
PROVIDERS: Family Medicine; Orthopaedic Surgery; ADMIT Family Medicine; ATTEND Family Medicine
PROC: 0PSF04Z Reposition Right Humeral Shaft with Internal Fixation Device, Open Approach (ICD-10-PCS; principal; 2018-08-05 08:00)
DX: S42.301A Unspecified fracture of shaft of humerus, right arm, initial encounter for closed fracture (principal); W19.XXXA Unspecified fall, initial encounter; J44.9 Chronic obstructive pulmonary disease, unspecified; I25.10 Atherosclerotic heart disease of native coronary artery without angina pectoris; I10 Essential (primary) hypertension; I48.2 Chronic atrial fibrillation; G62.9 Polyneuropathy, unspecified; Z87.891 Personal history of nicotine dependence

== ENCOUNTER 2018-08-08 15:58 | Emergency (ER) | payer MEDICARE ==
[~2018-08-08] VITALS: Ht 188 cm; Wt 90.9 kg
[~2018-08-08 15:58] MED LIST changes: +ASPIRIN81 MG PO; +CARDIZEM CD180 MG PO; +MOBIC7.5 MG PO; +SYMBICORT 16010.2 GM INH; +TESSALON PERLE100 MG PO; +XARELTO10 MG PO
[2018-08-08 16:16] VITALS: Ht 188 cm; Wt 90.9 kg
[2018-08-08 16:32] LABS: BASOPHILS 0.3 % (0-2); EOSINOPHILS 2.7 % (0-7); HEMOGLOBIN 9.8 g/dL (13.5-17.5); IMMATURE GRANULOCYTES 0.8 % (0-5); MCH 32.8 pg (26.0-34.0); MCHC 33.8 g/dL (31.0-37.0); MEAN PLATELET VOLUME 10.5 fL (7.4-10.4); NEUTROPHILS 67.2 % (40-80); PLATELET COUNT 203 10x3/uL (130-400); RBC 2.99 10x6/uL (4.20-6.10); RDW 13.8 % (11.5-14.5); WBC 9.6 10x3/uL (4.8-10.8)
[2018-08-08 16:45] LABS: APTT 36.5 SECONDS (22.8-39.4); INR 1.47 (0.85-1.17); PROTIME 17.3 SECONDS (11.6-15.0)
[2018-08-08 16:46] LABS: D-DIMER-QUANTITATIVE 2.22 ug/mLFEU (0.20-0.54)
[2018-08-08 16:49] LABS: ALBUMIN 3.3 g/dL (3.4-5.0); ALKALINE PHOSPHATASE 89 U/L (46-116); ALT (SGPT) 45 U/L (10-68); BILIRUBIN - TOTAL 0.81 mg/dL (0.2-1.3); CALC OSMOLALITY 279 mosm/kg (275-300); CALCIUM 8.3 mg/dL (8.5-10.1); CARBON DIOXIDE 29.2 mmol/L (21.0-32.0); CHLORIDE - SERUM 101 mmol/L (98-107); CREATININE - SERUM 1.2 mg/dL (0.6-1.3); GLUCOSE 94 mg/dL (74-106); POTASSIUM - SERUM 3.4 mmol/L (3.5-5.1); PROTEIN - SERUM 6.1 g/dL (6.4-8.2); SODIUM 136 mmol/L (136-145); UREA NITROGEN 35 mg/dL (7-18); eGFR NON AFRICAN AMERICAN 63 mL/min (90-120)
[2018-08-08 17:01] LABS: CKMB 31.2 U/L (0.0-3.6); MAGNESIUM - SERUM 2.2 mg/dL (1.8-2.4); TROPONIN-I 0.028 ng/mL (0.000-0.060)
[2018-08-08 17:02] LABS: CREATINE KINASE 5133 UL (21-232)
[2018-08-08] MEDS ORDERED: MECLIZINE HCL25 MG PO (20:04)
[2018-08-08 20:19] VITALS: BP 164/85
== END 2018-08-08 20:19 | disposition home or self-care (01) ==
LOC: D.ER 15:58
PROVIDERS: Family Medicine
DX: H74.8X1 Other specified disorders of right middle ear and mastoid (principal); T14.8XXA Other injury of unspecified body region, initial encounter; W18.30XA Fall on same level, unspecified, initial encounter; Y93.89 Activity, other specified; Y92.89 Other specified places as the place of occurrence of the external cause; S01.01XA Laceration without foreign body of scalp, initial encounter; R42 Dizziness and giddiness

== ENCOUNTER 2018-08-18 22:27 | Inpatient (IN) | payer MEDICARE, MEDICAID ==
[~2018-08-18] VITALS: Ht 188 cm; Wt 106.6 kg
[~2018-08-18 22:27] MED LIST changes: +MECLIZINE HCL25 MG PO
[2018-08-18 22:48] VITALS: BP 133/63
[2018-08-18] MEDS ORDERED: MOBIC7.5 MG PO (22:52)
[2018-08-18] MEDS ORDERED: TIAZAC/CARDIZE240 M1 PO (22:53)
[2018-08-18] MEDS ORDERED: CARDIZEM LA120 MG PO (22:54)
[2018-08-18] MEDS ORDERED: PROTONIX40 MG PO (22:56)
[2018-08-18] MEDS ORDERED: FUROSEMIDE20 MG PO (22:56)
[2018-08-18 23:07] LABS: BASOPHILS 0.2 % (0-2); EOSINOPHILS 1.5 % (0-7); HEMATOCRIT 30.2 % (42.0-54.0); HEMOGLOBIN 9.8 g/dL (13.5-17.5); IMMATURE GRANULOCYTES 0.4 % (0-5); LYMPHOCYTES 9.9 % (15-50); MCH 32.8 pg (26.0-34.0); MCHC 32.5 g/dL (31.0-37.0); MEAN PLATELET VOLUME 9.6 fL (7.4-10.4); PLATELET COUNT 265 10x3/uL (130-400); RBC 2.99 10x6/uL (4.20-6.10); RDW 15.7 % (11.5-14.5); WBC 10.3 10x3/uL (4.8-10.8)
[2018-08-18 23:16] LABS: APTT 33.2 SECONDS (22.8-39.4); INR 1.25 (0.85-1.17); PROTIME 15.2 SECONDS (11.6-15.0)
[2018-08-18 23:27] LABS: ALBUMIN 3.2 g/dL (3.4-5.0); ALKALINE PHOSPHATASE 104 U/L (46-116); ALT (SGPT) 28 U/L (10-68); BILIRUBIN - TOTAL 0.52 mg/dL (0.2-1.3); CALC OSMOLALITY 274 mosm/kg (275-300); CALCIUM 8.1 mg/dL (8.5-10.1); CHLORIDE - SERUM 101 mmol/L (98-107); CREATININE - SERUM 1.1 mg/dL (0.6-1.3); GLUCOSE 114 mg/dL (74-106); POTASSIUM - SERUM 3.8 mmol/L (3.5-5.1); PROTEIN - SERUM 6.1 g/dL (6.4-8.2); SODIUM 135 mmol/L (136-145); UREA NITROGEN 23 mg/dL (7-18); eGFR NON AFRICAN AMERICAN 69 mL/min (90-120)
[2018-08-18 23:33] LABS: CKMB 3.2 U/L (0.0-3.6); CREATINE KINASE 410 UL (21-232); MAGNESIUM - SERUM 1.8 mg/dL (1.8-2.4); TROPONIN-I < 0.017 ng/mL (0.000-0.060)
--- NOTE | 2018-08-19 00:01 | NUR ---
ALEXIA, PTS DAUGHTER, PHONE NUMBER [phone]
--- NOTE | 2018-08-19 00:14 | NUR ---
[id number] [facility] BAND NUMBER
--- NOTE | 2018-08-19 00:15 | NUR ---
DR GRIFFIN IN PT ROOM SPLINTING PT ARM.
--- NOTE | 2018-08-19 01:25 | NUR ---
NURSE ASKED EDP IF HE WANTED TO GIVE PT MEDICATION FOR AFIB, EDP STATES THE PT LOOKS DRY JUST TO GIVE PT ORDERED FLUIDS.
[2018-08-19 02:14] VITALS: BP 122/100; BMI 30.2
[2018-08-19 02:25] VITALS: BP 120/98
[2018-08-19 05:02] VITALS: BP 127/63
--- NOTE | 2018-08-19 07:56 | NUR ---
PT RESTING IN BED. NPO. CALLED SHRUTHI LUX VIA PHYSICIAN SENIOR STRATEGY MANAGER NUMBER TO REPORT PT RUNNING UNCONTROL AFIB 126. NO S/S OF ACUTE DISTRESS. CL IN PLACE.
--- NOTE | 2018-08-19 08:07 | NUR ---
SPOKE WITH SHRUTHI LUX. CARDIO CONSULT TO BE ORDERED NOW. NO S/S OF ACUTE DISTRESS. CL IN PLACE.
[2018-08-19 08:53] VITALS: BP 128/80
--- NOTE | 2018-08-19 11:00 | NUR ---
ASSITED PT WITH SIGNING CONSENTS AND GETTING READY FOR SX. WALKED OUT TO SPEAK WITH MD. RETURNED TO IV DC WITH TIP IN TACT. R ARM INCISION WITH BRIGHT RED BLOOD NOTED TO INCISION AND BED LINEN. REWRAPPED AND REINFORCED ARM. PT LEFT ROOM WITH SX TECH. NO S/S OF ACUTE DISTRESS.
[2018-08-19 14:22] VITALS: Ht 188 cm; Wt 106.6 kg
--- NOTE | 2018-08-19 15:05 | NUR ---
REPORT FROM [facility]IA STATES PATIENTS MENTATION IS BASELINE TO PRE-OP STATUS.
--- NOTE | 2018-08-19 15:25 | NUR ---
1520: NOTICED THAT EX-FIX TO HUMERUS IS CAUSING HEAVY PRESSURE TO POINTS ON PATIENT'S CHEST. DR. FRANKS PAGED WITH NO RESPONSE AND CALLED WITH NO ANSWER.
--- NOTE | 2018-08-19 15:43 | NUR ---
PATIENT REPOSITIONED TO RELIEVE PRESSURE POINTS AT THE CHEST FROM EXTERNAL FIXATION DEVICE PER ORDERS.
--- NOTE | 2018-08-19 15:43 | NUR ---
REACHED DR. FRANKS VIA TELEPHONE AND HE INSTRUCTED TO REMOVE ARM SLING AND PROP PATIENT'S ARM UP WITH PILLOWS TO RELIEVE PRESSURE POINTS.
[2018-08-19 16:10] VITALS: BP 106/54
--- NOTE | 2018-08-19 18:50 | NUR ---
PT RESTING IN BED. VISITING WITH COMPANY. NO S/S OF ACUTE DISTRESS. CL IN PLACE.
--- NOTE | 2018-08-19 19:45 | NUR ---
PT SITTING UP IN BED, NO SIGNS OF DISTRESS. ALERT AND ORIENTED. IV LEFT FA INFUSING NS @ 75. O2 4L/NC. HR 93 CONTROLLED AFIB. SCDS IN PLACE. RIGHT ARM PROPPED ON PILLOWS, SOME BLOODY DRAINAGE AROUND ELBOW PORTION OF DRESSING, DAVOL DRAIN NOTED WITH BLOODY DRAINAGE. EMILY ON. DENIES PAIN. CL IN REACH, WILL CONT TO MONITOR
[2018-08-19 21:17] VITALS: BP 100/50
[2018-08-20 00:56] VITALS: BP 95/54
[2018-08-20 05:04] VITALS: BP 95/65
[2018-08-20 06:39] LABS: ALBUMIN 2.5 g/dL (3.4-5.0); ALKALINE PHOSPHATASE 86 U/L (46-116); ALT (SGPT) 27 U/L (10-68); BILIRUBIN - TOTAL 0.34 mg/dL (0.2-1.3); CALC OSMOLALITY 278 mosm/kg (275-300); CALCIUM 7.9 mg/dL (8.5-10.1); CARBON DIOXIDE 28.7 mmol/L (21.0-32.0); CHLORIDE - SERUM 105 mmol/L (98-107); GLUCOSE 89 mg/dL (74-106); POTASSIUM - SERUM 4.1 mmol/L (3.5-5.1); SODIUM 139 mmol/L (136-145); UREA NITROGEN 18 mg/dL (7-18)
[2018-08-20 06:48] LABS: CREATININE - SERUM 0.8 mg/dL (0.6-1.3); eGFR NON AFRICAN AMERICAN > 90 mL/min (90-120)
[2018-08-20 07:05] LABS: BASOPHILS 0.1 % (0-2); EOSINOPHILS 4.7 % (0-7); HEMATOCRIT 30.7 % (42.0-54.0); HEMOGLOBIN 9.8 g/dL (13.5-17.5); IMMATURE GRANULOCYTES 0.2 % (0-5); LYMPHOCYTES 16.5 % (15-50); MCH 32.7 pg (26.0-34.0); MCHC 31.9 g/dL (31.0-37.0); MCV 102.3 fL (80.0-100.0); MEAN PLATELET VOLUME 10.5 fL (7.4-10.4); MONOCYTES 12.9 % (2-11); NEUTROPHILS 65.6 % (40-80); PLATELET COUNT 238 10x3/uL (130-400); WBC 9.1 10x3/uL (4.8-10.8)
[2018-08-20 08:58] VITALS: BP 135/77
--- NOTE | 2018-08-20 12:29 | NUR ---
Nutrition Follow Up: Chart reviewed Diet: Regular PO Intake: 75% meal avg BM: 08/20/18 Labs reviewed Meds noted including Remeron, Lasix Rec continue current diet. RD following.
--- NOTE | 2018-08-20 13:03 | NUR ---
PT RESTING IN BED. NO SIGNS OF DISTRESS. IV TO LEFT FORARM PATENT NO REDNESS OR TENDERNESS. ON 2L NC. ON TELEMETRY 93 CONT A FIB. HAS [place] TO RIGHT ARM DRESSING WILL BE CHANGED. COMPLAINS OF PAIN. MEDS GIVEN. DENIES ANY FUTHER NEED AT THIS TIME.CALL LIGHT IN REACH. BED LOW POSITION. NO FAMILY AT BEDSIDE AT THIS TIME.
[2018-08-20 13:26] VITALS: BP 100/45
--- NOTE | 2018-08-20 13:44 | NUR ---
I have reviewed this patient and I concur with the Shift Assessment completed by the Licensed Practical Nurse today this shift.
--- NOTE | 2018-08-20 15:43 | MORECARE ---
CASE MANAGEMENT DISCHARGE SUMMARY PATIENT: TAMMY CARDONA UNIT: [id number] ADM DATE: 08/19/18 AGE: 73 : 44 SEX: M ROOM/BED: D.2239 AUTHOR: RANGEL ESCUDERO PHYSICIAN: REFERRING PHYSICIAN: JONI OTT MD DATE OF SERVICE: 08/20/18 Discharge Plan Patient Name: TAMMY CARDONA Facility: [facility]:[place] : 1945 Planned Disposition: Home Anticipated Discharge Date: Discharge Date: Expected LOS: Initial Reviewer: [email or web address] Initial Review Date: 08/19/2018 Generated: 08/20/18 4:43 pm DCPIA - Discharge Planning Initial Assessment Updated by [email or web address]: Lissett Rupinderba on 08/20/18 3:38 pm * Is the patient Alert and Oriented? Yes * How many steps to enter\exit or inside your home? 2/0 * PCP Dr. Loyola for [facility] Jonelle Howell APN at [facility] * Pharmacy [facility] through [place] * Preadmission Environment Home with Family * ADLs Partial Dependent * Partial ADLs (Assistance needed) Ambulation * Equipment Cane CPAP Nebulizer Oxygen Walker * List name and contact numbers for known caregivers / representatives who currently or will assist patient after discharge: Elizabeth Camara DTR - [phone] * Verbal permission to speak to the caregivers and representatives has been obtained from the patient. Yes * Community resources currently utilized [place] Services * Please name any agencies selected above. [facility] * Additional services required to return to the preadmission environment? No * Can the patient safely return to the preadmission environment? Yes * Has this patient been hospitalized within the prior 30 days at any hospital? No Patient Name: TAMMY CARDONA Page 94515 at 1543 All edits/amendments must be made on the electronic document DICTATION DATE: 08/20/18 154 EPIDEMIOLOGY INTERN: JEB 08/20/18 154 RPT#: [id number] DC DATE: STATUS: ADM IN [facility] [address] [place] [address] END OF REPORT
--- NOTE | 2018-08-20 15:54 | MORECARE ---
CASE MANAGEMENT DISCHARGE SUMMARY PATIENT: TAMMY CARDONA UNIT: [id number] ADM DATE: 08/19/18 AGE: 73 : 44 SEX: M ROOM/BED: D.2239 AUTHOR: RANGEL ESCUDERO PHYSICIAN: REFERRING PHYSICIAN: JONI OTT MD DATE OF SERVICE: 08/20/18 Discharge Plan Patient Name: TAMMY CARDONA Facility: [facility]:[place] : 1945 Planned Disposition: Home Anticipated Discharge Date: Discharge Date: Expected LOS: Initial Reviewer: [email or web address] Initial Review Date: 08/19/2018 Generated: 08/20/18 4:54 pm Comments DCP- Discharge Planning Updated by [email or web address]: Lissett Spivey on 08/20/18 2:[address] Patient Name: TAMMY CARDONA Admission Status: ER Accout number: [id number] Admission Date: 08-19-2018 : 1945 Admission Diagnosis: Attending: JONI RICHEY Current LOS: 1 Anticipated DC Date: Planned Disposition: Home Primary Insurance: [employer] MEDICARE ADV Discharge Planning Comments: CM met with patient to complete initial dc planning assessment. CM educated patient on the CM role and verbal consent given by patient to complete assessment. Patient lives at home with his daughter and her . At discharge patient plans to return and feels this is a safe discharge. CM discussed availability of home health, rehab services, and medical equipment. Patient states he would like to see if he can get a rollator walker and use his [employer] insurance. He states he has VA benefits, but does not want to use the VA "they take too long." I asked if he would like transferred to the [place] if a bed became available and he said no. He states "I will not go to the [place] hospital." I spoke with Kenny in PT and he suggests rehab, states if patient declines rehab a rollator walker would be ok to order and easy to roll one handed. CM will continue to follow and will assist as needed with dc plans/needs. Head Irrigator: Lissett Spivey DCPIA - Discharge Planning Initial Assessment Updated by [email or web address]: Lissett Spivey on 08/20/18 3:38 pm * Is the patient Alert and Oriented? Yes * How many steps to enter\\exit or inside your home? 2/0 * PCP Dr. Loyola for [facility] Jonelle Howell APN at [place] clinic * [facility] [address] [facility] through [place] * Preadmission Environment Home with Family * ADLs Partial Dependent * Partial ADLs (Assistance needed) Ambulation * Equipment Cane CPAP Nebulizer Oxygen Walker * List name and contact numbers for known caregivers / representatives who currently or will assist patient after discharge: Elizabeth Camara [facility] - [phone] * Verbal permission to speak to the caregivers and representatives has been obtained from the patient. Yes * Community resources currently utilized [place] Services * Please name any agencies selected above. [facility] * Additional services required to return to the preadmission environment? No * Can the patient safely return to the preadmission environment? Yes * Has this patient been hospitalized within the prior 30 days at any hospital? No Last DP export: 08/20/18 2:43 p Patient Name: TAMMY CARDONA Page 81281 at 1554 All edits/amendments must be made on the electronic document DICTATION DATE: 08/20/181553 OPHTHALMIC DISPENSER: JEB 08/20/181553 RPT#: [id number] DC DATE: STATUS: ADM IN [facility] [address] [place] [address] END OF REPORT
--- NOTE | 2018-08-20 19:30 | NUR ---
PT SITTING UP IN BEDSIDE CHAIR, ALERT AND ORIENTED. WITHOUT DISTRESS. STATES NO PAIN AT THIS TIME. DRESSING TO RIGHT ARM CDI. DAVOL DRAIN IN PLACE W/ PINK TO RED DRAINAGE. HR 84 CONTROLLED AFIB PER TELE. IV LEFT FA INFUSING NS @ 50. O2 2L/NC. DENIES NEEDS. CL IN REACH, WILL CONT TO MONITOR
[2018-08-20 20:00] VITALS: BP 90/64
--- NOTE | 2018-08-20 21:00 | NUR ---
PT ASSISTED BACK TO BED. SCDS ON AND IN PLACE. EMILY ON. DENIES NEEDS. CL IN REACH
--- NOTE | 2018-08-20 23:00 | NUR ---
PT REQUESTED AND GIVEN MORPHINE FOR PAIN IN RIGHT ARM 11/14
[2018-08-21] VITALS: BP 98/59
--- NOTE | 2018-08-21 03:00 | NUR ---
PT REQUESTED AND GIVEN MORPHINE FOR PAIN IN ARM 8/10. PULSES STRONG, SOME SWELLING TO HAND. PT PERFORMING ROM EXERCISES FREQUENTLY.
[2018-08-21 04:00] VITALS: BP 114/63
--- NOTE | 2018-08-21 05:00 | NUR ---
PT ASSISTED UP TO BEDSIDE CHAIR. REINFORCED DRESSING TO RIGHT ARM DUE TO SOME PINK/YELLOW DRAINAGE ON OUTSIDE. GAVE PT COFFEE AND WATER UPON REQUEST. WITHOUT OTHER NEEDS. CL IN REACH, WILL CONT TO MONITOR
[2018-08-21 06:07] LABS: BASOPHILS 0.3 % (0-2); EOSINOPHILS 6.2 % (0-7); HEMATOCRIT 30.6 % (42.0-54.0); HEMOGLOBIN 9.9 g/dL (13.5-17.5); IMMATURE GRANULOCYTES 0.4 % (0-5); LYMPHOCYTES 18.5 % (15-50); MCHC 32.4 g/dL (31.0-37.0); MEAN PLATELET VOLUME 10.1 fL (7.4-10.4); MONOCYTES 6.7 % (2-11); NEUTROPHILS 67.9 % (40-80); PLATELET COUNT 282 10x3/uL (130-400); RDW 15.7 % (11.5-14.5); WBC 7.6 10x3/uL (4.8-10.8)
[2018-08-21 06:35] LABS: ALBUMIN 2.7 g/dL (3.4-5.0); ANION GAP 9.5 mmol/L (8-16); BILIRUBIN - TOTAL 0.66 mg/dL (0.2-1.3); CALCIUM 8.7 mg/dL (8.5-10.1); CARBON DIOXIDE 31.3 mmol/L (21.0-32.0); POTASSIUM - SERUM 3.8 mmol/L (3.5-5.1); PROTEIN - SERUM 5.9 g/dL (6.4-8.2)
[2018-08-21 06:53] LABS: CREATININE - SERUM 1.1 mg/dL (0.6-1.3)
--- NOTE | 2018-08-21 07:39 | NUR ---
AAOX4. ON 2LPM VIA NC, SITTING UP IN RECLINER IN ROOM, LEFT FOREARM IV PATENT INFUSING NS AT 50ML/HR, EXTERNAL FIXATION TO RIGHT SHOULDER, MODERATE AMOUNT OF DRAINAGE PRESENT TO ALL PIN SIGHTS, TELEMETRY PRESENT, DENIES ANY CURRENT NEEDS OR DISCOMFORTS, BED LOWERED AND LOCKED, CALL LIGHT WITHIN REACH. CPOC
[2018-08-21 09:49] VITALS: BP 108/63
--- NOTE | 2018-08-21 11:18 | NUR ---
PIN CARE PROVIDED, CLEAN SKIN AROUND SKIN WITH PEROXIDE AND STERILE QTIPS, MODERATE AMOUNT SEROUSSANGIOUS DRAINAGE TO PIN SITES, COVERED WITH GAUZE AND KERLIX DRESSINGS, EXTERNAL FIXATION TO RIGHT SHOULDER PRESENT, INSTRUCTED NOT TO USE ARM, ALLOWED TO TO RANGE OF MOTION TO FINGERS AND WRIST, DO NOT RAISE ARM ABOVE SHOULDER, TOLERATED DRESSING CHANGE, DENIES ANY CURRENT NEEDS OR DISCOMFORTS, BED LOWERED AND LOCKED, CALL LIGHT WITHIN REACH. CPOC
--- NOTE | 2018-08-21 12:00 | MORECARE ---
CASE MANAGEMENT DISCHARGE SUMMARY PATIENT: TAMMY CARDONA UNIT: [id number] ADM DATE: 08/19/18 AGE: 73 : 44 SEX: M ROOM/BED: D.2239 AUTHOR: RANGEL ESCUDERO PHYSICIAN: REFERRING PHYSICIAN: JONI OTT MD DATE OF SERVICE: 08/21/18 Discharge Plan Patient Name: TAMMY CARDONA Facility: [facility]:[place] : 1945 Planned Disposition: Home Anticipated Discharge Date: Discharge Date: Expected LOS: Initial Reviewer: [email or web address] Initial Review Date: 08/19/2018 Generated: 08/21/18 1:00 pm Comments DCP- Discharge Planning Updated by [email or web address]: Lissett Spivey on 08/21/18 10:[address] Patient Name: TAMMY CARDONA Admission Status: ER Accout number: [id number] Admission Date: 08-19-2018 : 1945 Admission Diagnosis: Attending: JONI RICHEY Current LOS: 2 Anticipated DC Date: Planned Disposition: Home Primary Insurance: [employer] MEDICARE ADV Discharge Planning Comments: Met with patient. I informed him that [facility] states he would have a 99 dollar charge for a rollator, he states that he will get one from the [place]. I informed him that I could get him a standard rolling walker, he declines. He states he will use his canes. CM will continue to assist with discharge planning/needs. Steep Tender: Lissett Orrba DCP- Discharge Planning Updated by [id number]: Lissett Spivey on 08/20/18 2:[address] Patient Name: TAMMY CARDONA Admission Status: ER Accout number: [id number] Admission Date: 08-19-2018 : 1945 Admission Diagnosis: Attending: JONI RICHEY Current LOS: 1 Anticipated DC Date: Planned Disposition: Home Primary Insurance: [employer] MEDICARE ADV Discharge Planning Comments: CM met with patient to complete initial dc planning assessment. CM educated patient on the CM role and verbal consent given by patient to complete assessment. Patient lives at home with his daughter and her . At discharge patient plans to return and feels this is a safe discharge. CM discussed availability of home health, rehab services, and medical equipment. Patient states he would like to see if he can get a rollator walker and use his [employer] insurance. He states he has VA benefits, but does not want to use the VA "they take too long." I asked if he would like transferred to the [facility] if a bed became available and he said no. He states "I will not go to the [place] hospital." I spoke with Kenny in PT and he suggests rehab, states if patient declines rehab a rollator walker would be ok to order and easy to roll one handed. CM will continue to follow and will assist as needed with dc plans/needs. Steep Tender: Lissett Spivey DCPIA - Discharge Planning Initial Assessment Updated by [email or web address]: Lissett Spivey on 08/20/18 3:38 pm * Is the patient Alert and Oriented? Yes * How many steps to enter\\exit or inside your home? 2/0 * PCP Dr. Loyola for [facility] Jonelle Howell APN at [place] clinic * [facility] [address] [facility] [address] [facility] through [place] * Preadmission Environment Home with Family * ADLs Partial Dependent * Partial ADLs (Assistance needed) Ambulation * Equipment Cane CPAP Nebulizer Oxygen Walker * List name and contact numbers for known caregivers / representatives who currently or will assist patient after discharge: Elizabeth Camara - R - [phone] * Verbal permission to speak to the caregivers and representatives has been obtained from the patient. Yes * Community resources currently utilized [place] Services * Please name any agencies selected above. [facility] * Additional services required to return to the preadmission environment? No * Can the patient safely return to the preadmission environment? Yes * Has this patient been hospitalized within the prior 30 days at any hospital? No Coverage Notice Reviewer: [id number] - Lissett Spivey Notice Issued Date-Time: 08/21/2018 11:52 Notice Type: IM Discharge Notice Notice Delivered To: Patient Relationship to Patient: Self Industrial Sales Representative Name: Delivery Method: HAND - Hand Delivered Edie Days: Prior Verbal Notification: Recipient Understood Notice: Yes Recipient Signature: Yes Med Rec Note Co-signed by Attending: Coverage Notice Comment: IMM explained, unable to sign so he marked an X, given, copy placed in MR Last DP export: 08/20/18 2:54 p Patient Name: TAMMY CARDONA Page 37834 at 1200 All edits/amendments must be made on the electronic document DICTATION DATE: 08/21/181158 JAVA SOFTWARE: JEB 08/21/181158 RPT#: [id number] DC DATE: STATUS: ADM IN [facility] [address] [place] [address] END OF REPORT
[2018-08-21] MEDS ORDERED: SULFAMETHOXAZOL1 TA3 PO (12:27)
[2018-08-21] MEDS ORDERED: HYDROCODON-ACE1 EAC2 PO (12:27)
--- NOTE | 2018-08-21 14:25 | NUR ---
REINFORCED RIGHT SHOULDER WITH 4X4 GAUZE D/T MODERATE DRAINAGE OF PIN SITES.
[2018-08-21 14:38] VITALS: BP 102/54
--- NOTE | 2018-08-21 15:47 | NUR ---
OT NOTE: PT COMPLETED SITTING BALANCE WITH SPV. PT COMPLETED SIT TO STANDS WITH CGA. THANK YOU, DARIEL KHAN
[2018-08-21 18:02] VITALS: BP 107/57
--- NOTE | 2018-08-21 18:42 | NUR ---
CHANGED DRESSING TO RIGHT SHOULDER, MODERATE AMOUNT OF SEROSANGIOUS DRAINAGE,
--- NOTE | 2018-08-21 19:08 | NUR ---
SITTING UP IN CHAIR, AAOX4, EXTERNAL FIXATION TO RIGHT SHOULDER, DRESSING C/D/I, IV TO LEFT HAND, INFUSING NS AT 50ML/HR, DENIES ANY CURRENT NEEDS OR DISCOMFORTS, BED LOWERED AND LOCKED, CALL LIGHT WITHIN REACH CPOC
--- NOTE | 2018-08-21 19:35 | NUR ---
PT SITTING UP IN CHAIR, NO SIGNS OF DISTRESS. ALERT AND ORIENTED. NO COMPLAINTS OF PAIN AT THIS TIME. DENIES NEEDS. IV LEFT HAND INFUSING NS. DRESSING TO RIGHT SHOULDER WITH SLIGHT SANGUINEOUS DRAINAGE. CL IN REACH, WILL CONT TO MONITOR
[2018-08-21 19:53] VITALS: BP 104/55
--- NOTE | 2018-08-21 21:30 | NUR ---
ASSISTED PT INTO BED. DENIES NEEDS. EMILY ON. CL IN REACH, WILL CONT TO MONITOR
[2018-08-22] VITALS: BP 101/62
--- NOTE | 2018-08-22 03:30 | NUR ---
MODERATE AMOUNT OF DRAINAGE ON RIGHT SHOULDER DRESSING. CHANGED DRESSING. STITCHES INTACT. NEAR ELBOW AT THE MOST DISTAL PART OF LOWER INCISION THERE IS A QUARTER SIZE AREA WITH YELLOW DRAINAGE AND ANOTHER NICKEL SIZE AREA WITH WHITE AND YELLOW DRAINAGE ON INNER FOREARM. THREE TINY PINK SPOTS ON SKIN OF FOREARM, TWO OF WHICH HAVE SLIGHT DRAINAGE SO THIS COVERED WITH BANDAIDS.
[2018-08-22 04:00] VITALS: BP 108/65
[2018-08-22 05:57] LABS: BASOPHILS 0.3 % (0-2); EOSINOPHILS 6.2 % (0-7); HEMATOCRIT 29.1 % (42.0-54.0); HEMOGLOBIN 9.4 g/dL (13.5-17.5); IMMATURE GRANULOCYTES 0.3 % (0-5); LYMPHOCYTES 11.5 % (15-50); MCH 32.3 pg (26.0-34.0); MCHC 32.3 g/dL (31.0-37.0); MEAN PLATELET VOLUME 9.8 fL (7.4-10.4); MONOCYTES 9.5 % (2-11); NEUTROPHILS 72.2 % (40-80); PLATELET COUNT 281 10x3/uL (130-400); RBC 2.91 10x6/uL (4.20-6.10); RDW 15.4 % (11.5-14.5); WBC 7.1 10x3/uL (4.8-10.8)
[2018-08-22 07:01] LABS: ALBUMIN 2.5 g/dL (3.4-5.0); ALKALINE PHOSPHATASE 86 U/L (46-116); ALT (SGPT) 19 U/L (10-68); BILIRUBIN - TOTAL 0.48 mg/dL (0.2-1.3); CALC OSMOLALITY 281 mosm/kg (275-300); CALCIUM 8.5 mg/dL (8.5-10.1); CARBON DIOXIDE 34.6 mmol/L (21.0-32.0); CHLORIDE - SERUM 104 mmol/L (98-107); GLUCOSE 98 mg/dL (74-106); POTASSIUM - SERUM 3.9 mmol/L (3.5-5.1); PROTEIN - SERUM 5.5 g/dL (6.4-8.2); SODIUM 141 mmol/L (136-145); UREA NITROGEN 14 mg/dL (7-18); eGFR NON AFRICAN AMERICAN 78 mL/min (90-120)
--- NOTE | 2018-08-22 07:48 | NUR ---
LAYING IN BED, EYES CLOSED, EASILY AROUSED, EXTERNAL FIXATION TO RIGHT SHOULDER, DRESSING PRESENT, MODERATE AMOUNT OF DRAINAGE, +1 EDEMA, SKIN FIRM, WEEPING IN LOWER ARM, COVERED WITH BANDAGES, O2 PRESENT AT 2.5LPM VIA NC, IV PATENT IN LEFT HAND, NS AT 100ML/HR. SCD'S PRESENT, DENIES ANY CURRENT NEEDS OR DISCOMFORTS, BED LOWERED AND LOCKED, CALL LIGHT WITHIN REACH. CPOC
[2018-08-22 09:34] VITALS: BP 129/77
--- NOTE | 2018-08-22 10:57 | NUR ---
CHANGED DRESSING TO RIGHT SHOULDER, MODERATE AMOUNT OF DRAINAGE FROM ALL PIN SITES, YELLOW DISCOLORATION TO BOTTOM OF STICHES AT THE ELBOW, DENIES ANY NEEDS OR DISCOMFORTS, BED LOWERED AND LOCKED, CALL LIGHT WITHIN REACH. CPOC
[2018-08-22 13:09] VITALS: BP 120/65
[2018-08-22 16:26] VITALS: BP 112/64
[2018-08-22 19:52] VITALS: BP 116/58
[2018-08-23] VITALS: BP 126/74
--- NOTE | 2018-08-23 05:00 | NUR ---
PT IN BED IN SUPINE POSITION. ALERT AND ORIENTED X4. RESPIRATIONS EVEN AND UNLABORED. VS STABLE AND AFEBRILE. NO VISUAL CUES OF DISTRESS NOTED. DENIES ANY OTHER NEEDS AT THIS TIME. BED LOW, SIDE RAILS UP X2. CALL LIGHT IN REACH. WILL CONTINUE TO MONITOR.
[2018-08-23 05:41] LABS: BASOPHILS 0.1 % (0-2); EOSINOPHILS 8.7 % (0-7); HEMATOCRIT 32.2 % (42.0-54.0); HEMOGLOBIN 10.4 g/dL (13.5-17.5); IMMATURE GRANULOCYTES 0.1 % (0-5); LYMPHOCYTES 19.9 % (15-50); MCH 32.8 pg (26.0-34.0); MCHC 32.3 g/dL (31.0-37.0); MCV 101.6 fL (80.0-100.0); MEAN PLATELET VOLUME 10.1 fL (7.4-10.4); MONOCYTES 9.1 % (2-11); NEUTROPHILS 62.1 % (40-80); PLATELET COUNT 319 10x3/uL (130-400); RBC 3.17 10x6/uL (4.20-6.10); RDW 15.3 % (11.5-14.5); WBC 6.9 10x3/uL (4.8-10.8)
[2018-08-23 06:25] LABS: ALBUMIN 2.7 g/dL (3.4-5.0); ALKALINE PHOSPHATASE 98 U/L (46-116); ALT (SGPT) 21 U/L (10-68); CALC OSMOLALITY 282 mosm/kg (275-300); CALCIUM 8.6 mg/dL (8.5-10.1); CARBON DIOXIDE 32.9 mmol/L (21.0-32.0); CHLORIDE - SERUM 103 mmol/L (98-107); CREATININE - SERUM 0.9 mg/dL (0.6-1.3); GLUCOSE 91 mg/dL (74-106); POTASSIUM - SERUM 3.9 mmol/L (3.5-5.1); PROTEIN - SERUM 6.2 g/dL (6.4-8.2); SODIUM 142 mmol/L (136-145); UREA NITROGEN 13 mg/dL (7-18); eGFR NON AFRICAN AMERICAN 88 mL/min (90-120)
--- NOTE | 2018-08-23 08:01 | NUR ---
AAOX4. ON 3LPM VIA NC, EXTERNAL FIXATION TO RIGHT SHOULDER PRESENT, DRESSING C/D/I. +1 EDEMA TO RIGHT ARM, +2 PULSE, WITH BRISK CAPILARY REFILLS, DENIES ANY CURRENT NEEDS OR DISCOMFORTS, BED LOWERED AND LOCKED, CALL LIGHT WITHIN REACH. CPOC
[2018-08-23 09:03] VITALS: BP 140/82
--- NOTE | 2018-08-23 10:09 | NUR ---
REQUESTED PAIN MEDICATION / TO RIGHT SHOULDER. ADMINISTERED PRN PAIN MEDICATION PER ORDER. DENIES ANY NEEDS OR DISCOMFORTS, BED LOWERED AND LOCKED, CALL LIGHT WITHIN REACH. CPOC
[2018-08-23 12:40] VITALS: BP 118/42
[2018-08-23 17:09] VITALS: BP 110/85
--- NOTE | 2018-08-23 19:35 | NUR ---
ALERT AND ORIENTED IN BED WATCHING TV. NO IV. RESITED TO THE LEFT AC. REQUESTS PAIN MEDICINE WHEN AVAILABLE. REINFORCED DRESSING TO EXTERNAL FIXATION. DENIES FURTHER NEEDS.
[2018-08-24] VITALS: BP 95/57
--- NOTE | 2018-08-24 02:14 | NUR ---
I have reviewed this patient and I concur with the Shift Assessment completed by the Licensed Practical Nurse today this shift.
[2018-08-24 03:00] VITALS: BP 116/65
[2018-08-24 06:02] LABS: BASOPHILS 0.3 % (0-2); EOSINOPHILS 8.9 % (0-7); HEMATOCRIT 30.6 % (42.0-54.0); HEMOGLOBIN 9.8 g/dL (13.5-17.5); IMMATURE GRANULOCYTES 0.2 % (0-5); LYMPHOCYTES 18.1 % (15-50); MCH 32.7 pg (26.0-34.0); MEAN PLATELET VOLUME 9.9 fL (7.4-10.4); MONOCYTES 8.7 % (2-11); NEUTROPHILS 63.8 % (40-80); PLATELET COUNT 310 10x3/uL (130-400); RDW 15.5 % (11.5-14.5); WBC 6.4 10x3/uL (4.8-10.8)
[2018-08-24 06:16] LABS: ALBUMIN 2.7 g/dL (3.4-5.0); ALKALINE PHOSPHATASE 98 U/L (46-116); ALT (SGPT) 19 U/L (10-68); BILIRUBIN - TOTAL 0.32 mg/dL (0.2-1.3); CALC OSMOLALITY 282 mosm/kg (275-300); CALCIUM 8.5 mg/dL (8.5-10.1); CARBON DIOXIDE 32.5 mmol/L (21.0-32.0); CHLORIDE - SERUM 104 mmol/L (98-107); CREATININE - SERUM 0.8 mg/dL (0.6-1.3); GLUCOSE 91 mg/dL (74-106); POTASSIUM - SERUM 4.1 mmol/L (3.5-5.1); PROTEIN - SERUM 5.9 g/dL (6.4-8.2); SODIUM 141 mmol/L (136-145); eGFR NON AFRICAN AMERICAN > 90 mL/min (90-120)
[2018-08-24 06:17] LABS: UREA NITROGEN 19 mg/dL (7-18)
[2018-08-24 08:46] VITALS: BP 121/60
--- NOTE | 2018-08-24 11:55 | MORECARE ---
CASE MANAGEMENT DISCHARGE SUMMARY PATIENT: TAMMY CARDONA UNIT: [id number] ADM DATE: 08/19/18 AGE: 73 : 44 SEX: M ROOM/BED: D.2239 AUTHOR: RANGEL ESCUDERO PHYSICIAN: REFERRING PHYSICIAN: JONI OTT MD DATE OF SERVICE: 08/24/18 Discharge Plan Patient Name: TAMMY CARDONA Facility: [facility]:[place] : 1945 Planned Disposition: Home Anticipated Discharge Date: Discharge Date: Expected LOS: Initial Reviewer: [id number] Initial Review Date: 08/19/2018 Generated: 08/24/18 12:55 pm Comments DCP- Discharge Planning Updated by [email or web address]: Lissett Allyssa on 08/24/18 10:[address] Patient Name: TAMMY CARDONA Encounter No: [id number] : 1945 Primary Insurance: [employer] MEDICARE ADV Anticipated DC Date: Planned Disposition: Home External Planned Provider: : DCP follow-up note: Patient and family in agreement with discharge plan. No changes to plan. Refuses home health, states his daughter will take care of his pin care and dressing changes. States he will have the [place] order a rollator and use his canes in the mean time. Case management will follow and assist as needed. Lissett Allyssa DCP- Discharge Planning Updated by [id number]: Lissett Bucioba on 08/21/18 10:[address] Patient Name: TAMMY CARDONA Admission Status: ER Accout number: [id number] Admission Date: 08-19-2018 : 1945 Admission Diagnosis: Attending: JONI RICHEY Current LOS: 2 Anticipated DC Date: Planned Disposition: Home Primary Insurance: [employer] MEDICARE ADV Discharge Planning Comments: Met with patient. I informed him that [facility] states he would have a 99 dollar charge for a rollator, he states that [facility]. I informed him that I could get him a standard rolling walker, he declines. He states he will use his canes. CM will continue to assist with discharge planning/needs. Dinkey Motor Operator: Lissett Spivey DCP- Discharge Planning Updated by [id number]: Lissett Bucioba on 08/20/18 2:[address] Patient Name: TAMMY CARDONA Admission Status: ER Accout number: [id number] Admission Date: 08-19-2018 : 1945 Admission Diagnosis: Attending: JONI RICHEY Current LOS: 1 Anticipated DC Date: Planned Disposition: Home Primary Insurance: [employer] MEDICARE ADV Discharge Planning Comments: CM met with patient to complete initial dc planning assessment. CM educated patient on the CM role and verbal consent given by patient to complete assessment. Patient lives at home with his daughter and her . At discharge patient plans to return and feels this is a safe discharge. CM discussed availability of home health, rehab services, and medical equipment. Patient states he would like to see if he can get a rollator walker and use his [employer] insurance. He states he has VA benefits, but does not want to use the VA "they take too long." I asked if he would like transferred to the [place] if a bed became available and he said no. He states "I will not go to the [place] hospital." I spoke with Kenny in PT and he suggests rehab, states if patient declines rehab a rollator walker would be ok to order and easy to roll one handed. CM will continue to follow and will assist as needed with dc plans/needs. Dinkey Motor Operator: Lissett Spivey DCPIA - Discharge Planning Initial Assessment Updated by [id number]: Lissett Bucioba on 08/20/18 3:38 pm * Is the patient Alert and Oriented? Yes * How many steps to enter\\exit or inside your home? 2/0 * [facility]elle [facility]ell [facility] at [place] [facility] * [facility] [place] [facility] through [place] * Preadmission Environment Home with Family * ADLs Partial Dependent * Partial ADLs (Assistance needed) Ambulation * Equipment Cane CPAP Nebulizer Oxygen Walker * List name and contact numbers for known caregivers / representatives who currently or will assist patient after discharge: Elizabeth Camara - DTR - [phone] * Verbal permission to speak to the caregivers and representatives has been obtained from the patient. Yes * Community resources currently utilized [place] Services * Please name any agencies selected above. [facility] * Additional services required to return to the preadmission environment? No * Can the patient safely return to the preadmission environment? Yes * Has this patient been hospitalized within the prior 30 days at any hospital? No Coverage Notice Reviewer: [id number] Spivey Notice Issued Date-Time: 08/21/2018 11:52 Notice Type: IM Discharge Notice Notice Delivered To: Patient Relationship to Patient: Self Automatic Die Cutting Machine Operator Name: Delivery Method: HAND - Hand Delivered Edie Days: Prior Verbal Notification: Recipient Understood Notice: Yes Recipient Signature: Yes Med Rec Note Co-signed by Attending: Coverage Notice Comment: IMM explained, unable to sign so he marked an X, given, copy placed in MR Reviewer: [id number] Purvi Spivey Notice Issued Date-Time: 08/24/2018 11:52 Notice Type: IM Discharge Notice Notice Delivered To: Patient Relationship to Patient: Self Automatic Die Cutting Machine Operator Name: Delivery Method: HAND - Hand Delivered Edie Days: Prior Verbal Notification: Recipient Understood Notice: Yes Recipient Signature: Yes Med Rec Note Co-signed by Attending: Coverage Notice Comment: IMM explained, able to sign an X, given, copy placed in MR Last DP export: 08/21/18 11:00 a Patient Name: TAMMY CARDONA Page 26340 at 1155 All edits/amendments must be made on the electronic document DICTATION DATE: 08/24/181154 GREENHOUSE SPECIALIST: JEB 08/24/18 115 RPT#: [id number] DC DATE: STATUS: ADM IN [facility] [address] [place] [address] END OF REPORT
[2018-08-24 12:30] VITALS: BP 109/51
--- NOTE | 2018-08-24 13:08 | NUR ---
DISCHARGE INSTRUCTIONS GIVEN. PATIENT VERBALIZED UNDERSTANDING. IV THERAPY DC'ED FROM [facility] WITH TIP INTACT. DAUGHTER HERE TO TAKE HOME. DRESSING CHANGED. WHEELED DOWNSTAIRS
--- NOTE | 2018-08-24 17:14 | NUR ---
OT NOTE: PT COMPLETED SITTING BALANCE WITH MOD I. PT COMPLETED STANDING BALANCE AND ADL MOB WITH SBA. THANK YOU, DARIEL KHAN
== END 2018-08-24 13:11 | disposition home or self-care (01) | DRG 493 ==
LOC: D.ER 22:27 → D.MS 08-19 01:00
PROVIDERS: Emergency Medicine; Family Medicine; Nurse Practitioner Family; Orthopaedic Surgery; ADMIT Family Medicine; ATTEND Family Medicine
PROC: 0RCJ0ZZ Extirpation of Matter from Right Shoulder Joint, Open Approach (ICD-10-PCS; principal; 2018-08-19 10:00)
PROC: 0PH Upper Bones, Insertion (ICD-10-PCS; 2018-08-19 10:00)
PROC: 0PPF04Z Removal of Internal Fixation Device from Right Humeral Shaft, Open Approach (ICD-10-PCS; 2018-08-19 10:00)
DX: T84.89XA Other specified complication of internal orthopedic prosthetic devices, implants and grafts, initial encounter (principal); S42.301A Unspecified fracture of shaft of humerus, right arm, initial encounter for closed fracture; W19.XXXA Unspecified fall, initial encounter; Z91.81 History of falling; I48.2 Chronic atrial fibrillation; J44.9 Chronic obstructive pulmonary disease, unspecified; I10 Essential (primary) hypertension; I25.10 Atherosclerotic heart disease of native coronary artery without angina pectoris